=== PATIENT | male | born 1950 | race African-American/Black ===

== ENCOUNTER 2018-11-03 14:21 | Emergency (ER) | payer BC, MEDICARE ==
[2018-11-03 16:01] LABS: #Eosinphils 0.4 thou/uL (0.0-0.7); #Lymphocytes 1.7 thou/uL (1.20-3.40); #Monocytes 0.8 thou/uL (0.11-0.59); #Neutrophils 3.8 thou/uL (1.40-6.50); %Basophils 0.7 % (0.0-1.0); %Eosinophils 6.4 % (0.0-10.0); %Lymphocytes 24.9 % (21.0-51.0); %Monocytes 11.7 % (0.0-10.0); %Neutrophils 56.3 % (42.0-75.0); Hemoglobin 16.2 g/dL (14.0-18.0); Mean Corpuscular HGB CONC 33.9 g/dL (32.0-36.0); Mean Corpuscular Hemoglobin 31.1 pg (27.0-31.0); Mean Corpuscular Volume 91.9 fL (78.0-98.0); Mean Platelet Volume 7.7 fL (7.4-10.4); Platelet Count 280 thou/uL (130-400); RBC Distribution Width 12.8 % (11.5-14.5); White Blood Cell (WBC) Count 6.7 thou/uL (4.8-10.8)
[2018-11-03 16:19] LABS: ALT (SGPT) 36 U/L (8-55); AST (SGOT) 23 U/L (5-34); Albumin 4.2 g/dL (3.4-4.8); Alkaline Phosphatase 115 U/L (40-150); Anion Gap 14 mmol/L (10-20); BUN (Urea Nitrogen) 13 mg/dL (8.4-25.7); Bilirubin, Total 0.6 mg/dL (0.2-1.2); Calc. Creatinine Clearance 0 mL/min (70-130); Calcium 9.4 mg/dL (7.8-10.44); Carbon Dioxide 26 mmol/L (23-31); Chloride 102 mmol/L (98-107); Estimated GFR-MDRD 81; Globulin 2.8 g/dL (2.4-3.5); Glucose 84 mg/dL (80-115); Potassium 3.7 mmol/L (3.5-5.1); Sodium 138 mmol/L (136-145)
[2018-11-03] MEDS ORDERED: Dexamethasone 4 mg/ml Vial ONE (18:40)
[2018-11-03] MEDS ORDERED: Ketorolac Tromethamine 30 MG/ML VIAL ONE (18:40)
[2018-11-03] MEDS ORDERED: cloNIDine 0.1 MG TAB ONE (18:40)
--- NOTE | 2018-11-05 08:58 | EKG ---
Test Reason : Blood Pressure : / mmHG Vent. Rate : 068 BPM Atrial Rate : 068 BPM P-R Int : 170 ms QRS Dur : 102 ms QT Int : 430 ms P-R-T Axes : 061 -04 133 degrees QTc Int : 457 ms Normal sinus rhythm Possible Left atrial enlargement Left ventricular hypertrophy T wave abnormality, consider lateral ischemia Abnormal ECG No ST elevation/MD Confirmed by OLIVER FAIR M.D. ([id number]), social media editor FLORES FRITZ ([id number]) on 11/05/2018 8:58:42 AM Referred By: Confirmed By:OLIVER FAIR M.D.
== END 2018-11-03 19:40 | disposition home or self-care (01) ==
LOC: ERS 14:21
DX: M54.5 Low back pain (principal); I10 Essential (primary) hypertension
CPT/HCPCS: 36415; 80053; 82553; 84484; 85025; 93005; 96372; J1100; J1885

== ENCOUNTER 2018-12-20 10:49 | Emergency (ER) | payer BC, MEDICARE ==
--- NOTE | 2018-12-20 11:26 | RAD ---
XR Knee Lt 4 View STANDARD History: Knee pain Comparison: None. Findings: No acute fracture or malalignment. Please be central osteophyte of the lateral margin media l femoral condyle. Mild asymmetric changes of the quadriceps and patellar tendons. Small lateral compartment and medial compartment and patellofemoral compartment periarticular osteophytes. Impression: [id number] degenerative changes. No acute osseous abnormality.
--- NOTE | 2018-12-20 13:11 | RAD ---
EXAM: Portable chest PROVIDED CLINICAL HISTORY: Palpitations COMPARISON: 04/05/2012 FINDINGS: Cardiac and mediastinal silhouette is within normal limits. No focal consolidation, pleural fluid or pneumothorax evident. IMPRESSION: No evidence for an acute cardiopulmonary process.
[2018-12-20 13:17] LABS: #Eosinphils 0.2 thou/uL (0.0-0.7); #Lymphocytes 1.1 thou/uL (1.20-3.40); #Monocytes 0.9 thou/uL (0.11-0.59); #Neutrophils 7.4 thou/uL (1.40-6.50); %Basophils 0.1 % (0.0-1.0); %Eosinophils 1.8 % (0.0-10.0); %Lymphocytes 11.7 % (21.0-51.0); %Monocytes 9.8 % (0.0-10.0); %Neutrophils 76.6 % (42.0-75.0); Hemoglobin 16.9 g/dL (14.0-18.0); Mean Corpuscular HGB CONC 34.4 g/dL (32.0-36.0); Mean Platelet Volume 7.1 fL (7.4-10.4); Platelet Count 325 thou/uL (130-400); RBC Distribution Width 12.1 % (11.5-14.5); Red Blood Cell (RBC) Count 5.45 mill/uL (4.70-6.10); White Blood Cell (WBC) Count 9.6 thou/uL (4.8-10.8)
[2018-12-20 13:42] LABS: ALT (SGPT) 30 U/L (8-55); AST (SGOT) 18 U/L (5-34); Albumin 4.8 g/dL (3.4-4.8); Alkaline Phosphatase 129 U/L (40-150); Anion Gap 17 mmol/L (10-20); BUN (Urea Nitrogen) 14 mg/dL (8.4-25.7); Bilirubin, Total 0.5 mg/dL (0.2-1.2); CK (CPK) 168 U/L (30-200); Calc. Creatinine Clearance 0 mL/min (70-130); Calcium 10.7 mg/dL (7.8-10.44); Carbon Dioxide 21 mmol/L (23-31); Chloride 104 mmol/L (98-107); Estimated GFR-MDRD 78; Globulin 2.7 g/dL (2.4-3.5); Glucose 101 mg/dL (80-115); Lipase 34 U/L (8-78); Potassium 4.3 mmol/L (3.5-5.1); Protein, Total 7.5 g/dL (5.8-8.1); Sodium 138 mmol/L (136-145)
[2018-12-20 14:19] LABS: Bilirubin Negative (Negative); Blood, Urine Negative (Negative); Clarity Clear (Clear); Glucose, Urine (Dipstick) Normal (Negative); Leukocyte Negative Leu/uL (Negative); Nitrite Negative (Negative); Protein, Urine (Dipstick) 20 mg/dL (Neg-Trace); Urobilinogen Normal mg/dL (Less than 2)
== END 2018-12-20 14:23 | disposition home or self-care (01) ==
LOC: ERS 10:49
DX: R00.2 Palpitations (principal); M25.562 Pain in left knee; E11.9 Type 2 diabetes mellitus without complications; Z95.5 Presence of coronary angioplasty implant and graft; I10 Essential (primary) hypertension; Z85.46 Personal history of malignant neoplasm of prostate; Z79.899 Other long term (current) drug therapy; Z79.84 Long term (current) use of oral hypoglycemic drugs
CPT/HCPCS: 36415; 71045; 80053; 81003; 82550; 83690; 84484; 85025; 93005

== ENCOUNTER 2019-04-04 16:15 | Emergency (ER) | payer BC, MEDICARE ==
[2019-04-04] MEDS ORDERED: Ketorolac Tromethamine 30 MG/ML VIAL ONE (17:34)
== END 2019-04-04 17:50 | disposition home or self-care (01) ==
LOC: ERS 16:15
DX: M54.42 Lumbago with sciatica, left side (principal); M25.552 Pain in left hip; E11.9 Type 2 diabetes mellitus without complications; I20.9 Angina pectoris, unspecified
CPT/HCPCS: 96372; 99283; J1885

== ENCOUNTER 2019-04-06 07:49 | Outpatient (CLI) | payer BC, MEDICARE ==
--- NOTE | 2019-04-06 08:29 | RAD ---
EXAM: 2 views of the left hip HISTORY: Left hip pain COMPARISON: None FINDINGS: 2 views of the left hip shows no evidence of acute fracture or dislocation. No degenerative changes are seen. No soft tissue swelling is present. IMPRESSION: No evidence of acute osseous abnormality.
--- NOTE | 2019-04-06 08:30 | RAD ---
EXAM: Single view of the chest HISTORY: Abnormal finding in the lung field COMPARISON: 12/20/2018 FINDINGS: Single view of the chest shows a normal sized cardiomediastinal silhouette. There is no abby dence of consolidation, mass, or pleural effusion. Degenerative changes are seen in the spine. IMPRESSION: No evidence of acute cardiopulmonary disease
--- NOTE | 2019-04-06 08:30 | RAD ---
Exam: Single view of the pelvis HISTORY: Pelvic and hip pain COMPARISON: None FINDINGS: A single view the pelvis shows no evidence of acute fracture or dislocation. No degenerativ e changes seen in either hip. IMPRESSION: No evidence of acute osseous abnormality.
--- NOTE | 2019-04-06 08:32 | BD ---
EXAM: DEXA bone density examination HISTORY: 68-year-old male with osteopenia COMPARISON: None FINDINGS: L1--bone mineral density 0.960 g/sq cm; T score -1.0 L2--bone mineral density 1.023 g/sq cm; T score -0.6 L3--bone mineral density 1.063 g/sq cm; T score -0.4 L4--bone mineral density 1.098 g/sq cm; T score 0.1 Total L1-L4--bone mineral density 1.040 g/sq cm; T score -0.5 Left femoral neck--bone mineral density0.847; T score -0.6 Total proximal left femur--bone mineral density 1.135; T score 0.7 IMPRESSION: Normal bone mineral density.
--- NOTE | 2019-04-06 09:31 | RAD ---
TWO VIEWS OF THE LUMBAR SPINE: INDICATION: History of spinal stenosis. COMPARISON: Prior exam 11/05/2004. FINDINGS: There has been interval progression of mild degenerative disk disease involving L4-5 and L5-S1. Mild facet osteoarthrosis is seen at L4-5 and L5-S1. No acute fracture or subluxation is evident. Spina l alignment is preserved. IMPRESSION: Mild spondylosis of the lumbar spine. POS: TPC
== END 2019-04-06 07:50 | disposition home or self-care (01) ==
LOC: BICMAMMO 07:49
PROVIDERS: ATTEND Family Medicine
DX: Z13.820 Encounter for screening for osteoporosis (principal); M25.552 Pain in left hip; R91.8 Other nonspecific abnormal finding of lung field; R10.2 Pelvic and perineal pain; M48.061 Spinal stenosis, lumbar region without neurogenic claudication; M47.816 Spondylosis without myelopathy or radiculopathy, lumbar region
CPT/HCPCS: 71045; 72100; 72170; 77080

== ENCOUNTER 2019-04-06 08:29 | Emergency (ER) | payer BC, MEDICARE | END 2019-04-06 09:06 | disposition home or self-care (01) | LOC: ERS 08:29 | DX: M54.32 Sciatica, left side (principal); E11.9 Type 2 diabetes mellitus without complications; I10 Essential (primary) hypertension | CPT/HCPCS: 99283 ==

== ENCOUNTER 2019-04-13 16:22 | Emergency (ER) | payer BC, MEDICARE ==
[2019-04-13 18:33] LABS: #Basophils 0.1 thou/uL (0.0-0.2); #Eosinphils 0.3 thou/uL (0.0-0.7); #Lymphocytes 1.7 thou/uL (1.20-3.40); #Monocytes 0.8 thou/uL (0.11-0.59); #Neutrophils 5.5 thou/uL (1.40-6.50); %Eosinophils 4.1 % (0.0-10.0); %Lymphocytes 20.3 % (21.0-51.0); %Monocytes 9.8 % (0.0-10.0); %Neutrophils 64.8 % (42.0-75.0); Hemoglobin 14.1 g/dL (14.0-18.0); Mean Corpuscular HGB CONC 33.7 g/dL (32.0-36.0); Mean Corpuscular Hemoglobin 31.1 pg (27.0-31.0); Mean Corpuscular Volume 92.2 fL (78.0-98.0); Mean Platelet Volume 6.8 fL (7.4-10.4); Platelet Count 305 thou/uL (130-400); RBC Distribution Width 12.5 % (11.5-14.5); Red Blood Cell (RBC) Count 4.53 mill/uL (4.70-6.10); White Blood Cell (WBC) Count 8.5 thou/uL (4.8-10.8)
[2019-04-13] MEDS ORDERED: HYDROcodone/Acetaminophen 10/325 mg Tablet ONE (18:35)
[2019-04-13] MEDS ORDERED: Ibuprofen 200 MG TAB ONE (18:35)
[2019-04-13] MEDS ORDERED: Diazepam 5 MG TAB ONE (18:35)
[2019-04-13 18:56] LABS: ALT (SGPT) 32 U/L (8-55); AST (SGOT) 15 U/L (5-34); Albumin 4.3 g/dL (3.4-4.8); Alkaline Phosphatase 92 U/L (40-110); Anion Gap 10 mmol/L (10-20); BUN (Urea Nitrogen) 21 mg/dL (8.4-25.7); Bilirubin, Total 0.6 mg/dL (0.2-1.2); Calc. Creatinine Clearance 0 mL/min (70-130); Calcium 9.4 mg/dL (7.8-10.44); Carbon Dioxide 32 mmol/L (23-31); Chloride 102 mmol/L (98-107); Estimated GFR-MDRD 78; Globulin 2.4 g/dL (2.4-3.5); Glucose 113 mg/dL (80-115); Potassium 3.9 mmol/L (3.5-5.1); Protein, Total 6.7 g/dL (5.8-8.1); Sodium 140 mmol/L (136-145)
== END 2019-04-13 19:32 | disposition home or self-care (01) ==
LOC: ERS 16:22
DX: R07.9 Chest pain, unspecified (principal); G89.29 Other chronic pain; M79.605 Pain in left leg; E11.9 Type 2 diabetes mellitus without complications; I10 Essential (primary) hypertension; Z79.899 Other long term (current) drug therapy; Z79.84 Long term (current) use of oral hypoglycemic drugs
CPT/HCPCS: 36415; 80053; 84484; 85025; 93005

== ENCOUNTER 2019-05-26 06:05 | Emergency (ER) | payer BC, MEDICARE ==
[2019-05-26] MEDS ORDERED: Ketorolac Tromethamine 60 MG/2 ML VIAL ONE (06:52)
== END 2019-05-26 07:08 | disposition home or self-care (01) ==
LOC: ERS 06:05
DX: B34.9 Viral infection, unspecified (principal); E11.9 Type 2 diabetes mellitus without complications; I10 Essential (primary) hypertension; Z79.84 Long term (current) use of oral hypoglycemic drugs; Z95.5 Presence of coronary angioplasty implant and graft
CPT/HCPCS: 87804; 96372; 99283; J1885

== ENCOUNTER 2019-06-06 08:38 | Outpatient (CLI) | payer MEDICARE, BC ==
--- NOTE | 2019-06-06 11:00 | MRI ---
MRI OF THE LUMBAR SPINE WITHOUT CONTRAST: DATE: 06/06/2019. COMPARISON: None. HISTORY: Lumbar radiculopathy, low back pain with numbness and tingling down the left leg. TECHNIQUE: Multiplanar, multisequence MR imaging of the lumbar spine obtained without contrast. FINDINGS: The sagittal STIR imaging demonstrates no focal area of osseous marrow edema. On the basis of 5 lumb ar-type vertebral bodies, the conus medullaris terminates at the T12-L1 level. T12-L1: Mild bilateral facet hypertrophy. Intervertebral disk height and signal intensity within no rmal limits with no significant central canal or neural foraminal stenosis. L1-2: Intervertebral disk height and signal intensity within normal limits with no significant centr al canal or neural foraminal stenosis. L2-3: Intervertebral disk height and signal intensity within normal limits. No significant central canal or neural foraminal stenosis. Mild left-sided facet hypertrophy. L3-4: Intervertebral disk height and signal intensity within normal limits with no significant centr al canal or neural foraminal stenosis. L4-5: Mild bilateral facet hypertrophy. Intervertebral disk height and signal intensity within norm al limits. There is mild neural foraminal stenosis on the left. No central canal or right neural fo raminal stenosis. L5-S1: There is disk desiccation and mild disk bulge. There is an annular tear in the left paracent ral region with a small associated left paracentral disk protrusion which abuts the ventral aspect of the S1 nerve root on the left with a mild degree of left lateral recess stenosis. No significant ne ural foraminal stenosis on either side. The imaged retroperitoneal structures demonstrate a suggestion of a possible outpouching/sacular aneu rysm of the distal abdominal aorta posteriorly. CT angiogram of the abdomen and pelvis is advised fo r full assessment. IMPRESSION: 1. Annular tear and associated disk protrusion in the left paracentral region at L5-S1 with associat ed left lateral recess stenosis and slight mass effect on the S1 nerve root on the left. 2. 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 CT angiogram is advised. CODE T POS: OFF
== END 2019-06-06 08:39 | disposition home or self-care (01) ==
LOC: BICMRI 08:38
PROVIDERS: ATTEND Nurse Practitioner Family
DX: M51.16 Intervertebral disc disorders with radiculopathy, lumbar region (principal); M51.27 Other intervertebral disc displacement, lumbosacral region; S31.010A Laceration without foreign body of lower back and pelvis without penetration into retroperitoneum, initial encounter; M48.08 Spinal stenosis, sacral and sacrococcygeal region; M53.3 Sacrococcygeal disorders, not elsewhere classified
CPT/HCPCS: 72148

== ENCOUNTER 2019-07-05 13:25 | Outpatient (CLI) | payer BC, MEDICARE ==
[2019-07-05] MEDS ORDERED: Iopamidol-370 76% 500 ML 1 ML ONE (13:49)
--- NOTE | 2019-07-05 14:28 | CT ---
CTA ABDOMEN AND PELVIS WITH AND WITHOUT IV CONTRAST: INDICATIONS: Abdominal aortic aneurysm TECHNIQUE: Multiple CTA images were obtained of the abdomen and pelvis utilizing IV contrast and 3D reformatted imaging. Noncontrast CT images were obtained of the abdomen and pelvis. Axial, coronal and sagittal reformatted images were constructed from the raw data. COMPARISON: Prior CT abdomen and pelvis with contrast dated January 13, 2016. FINDINGS: ABDOMEN: Lung bases: Clear Liver: Stable small hemangiomas within the left hepatic lobe and right hepatic lobe. There is scatter ed calcified granuloma within the liver. Gallbladder: Normal appearing. Pancreas: Normal. Adrenal glands: Normal. Spleen: Calcified granuloma within the spleen Kidneys and ureters: Normal. No hydronephrosis. Lymph nodes:No lymphadenopathy. Free fluid in abdomen:No free fluid is evident. PELVIS: Small and large bowel: There are scattered colonic diverticulosis without evidence of active divertic ulitis. The small bowel is of normal caliber. Appendix:Not definitely seen Bladder: Normal. Rectal and perirectal soft tissues:Normal. Reproductive structures: Normal. Free fluid in pelvis: No free fluid is evident. Lymphadenopathy pelvis: No lymphadenopathy is evident. Osseous structures: No acute osseous abnormality. No destructive osteolytic or osteoblastic lesion i s identified. There is scattered degenerative and osteoarthritic changes. Soft tissues:There is a fat-containing umbilical hernia. VASCULATURE: Aorta: There are moderate atherosclerotic irregularity involving the abdominal aorta. There is a smal l thrombosed fusiform outpouching involving the posterior aspect of the infrarenal abdominal aorta on image 247 of series 4 measuring 1 cm. This is suspicious for small thrombosed fusiform aneurysm. Celiac:Normal in caliber without evidence of stenosis or occlusion. SMA:There is mild narrowing involving the proximal SMA Renal arteries:Normal in caliber without evidence of stenosis or occlusion. VINITA:There is moderate narrowing involving the origin of the VINITA. Right common iliac artery: There is moderate atherosclerotic irregularity involving the right common iliac artery with approximately 50% luminal caliber narrowing. Right external iliac artery: There is severe narrowing involving the right external iliac artery, bes t seen on image 329 of series 4 and image 80 of series 6 Right internal iliac artery: There is severe narrowing involving the origin and proximal aspect of th e right internal iliac artery. Left common iliac artery: There is a stable chronic focal dissection involving the proximal left comm on iliac artery. There is a eccentric atherosclerotic plaque involving the mid left common iliac artery inducing mild to moderate luminal caliber narrowing. Left external iliac artery: There is a moderate 50% luminal caliber narrowing involving the distal le ft external iliac artery.. Left internal iliac artery: Completely occluded Right common femoral artery: Normal in caliber without evidence of stenosis or occlusion. Right deep femoral artery: Normal in caliber without evidence of stenosis or occlusion. Right superficial femoral artery: There is moderate narrowing involving the origin and proximal aspe ct of the right SFA. Left common femoral artery: Normal in caliber without evidence of stenosis or occlusion. Left deep femoral artery: Normal in caliber without evidence of stenosis or occlusion. Left superficial femoral artery: There is moderate narrowing involving the proximal aspect the left superficial femoral artery. Additional findings: None. IMPRESSION: 1. Small thrombosed posterior fusiform outpouching involving the lower infrarenal abdominal aorta, ju st proximal to the aortic bifurcation. 2. High-grade stenosis involving the right external iliac artery and origin and proximal aspect of th e right internal iliac artery. 3. 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 4. 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 Mild to moderate luminal caliber narrowing involving the mid left common iliac artery 5. Mild narrowing involving the proximal SMA 6. Moderate narrowing involving the origin of the VINITA.
== END 2019-07-05 13:26 | disposition home or self-care (01) ==
LOC: BICCT 13:25
PROVIDERS: ATTEND Thoracic Surgery (Cardiothoracic Vascular Surgery)
DX: I71.4 Abdominal aortic aneurysm, without rupture (principal)
CPT/HCPCS: 74174; 82565; Q9967

== ENCOUNTER 2019-10-23 14:15 | Inpatient (IN) | payer BC, MEDICARE ==
[2019-10-23 14:39] LABS: #Basophils 0.1 thou/uL (0.0-0.2); #Eosinphils 0.2 thou/uL (0.0-0.7); #Lymphocytes 1.9 thou/uL (1.20-3.40); #Monocytes 0.8 thou/uL (0.11-0.59); #Neutrophils 4.1 thou/uL (1.40-6.50); %Eosinophils 2.5 % (0.0-10.0); %Lymphocytes 26.9 % (21.0-51.0); %Monocytes 11.6 % (0.0-10.0); %Neutrophils 56.9 % (42.0-75.0); Hemoglobin 15.8 g/dL (14.0-18.0); Mean Corpuscular HGB CONC 34.2 g/dL (32.0-36.0); Mean Corpuscular Hemoglobin 31.5 pg (27.0-31.0); Mean Corpuscular Volume 92.2 fL (78.0-98.0); Platelet Count 319 thou/uL (130-400); RBC Distribution Width 12.3 % (11.5-14.5); White Blood Cell (WBC) Count 7.1 thou/uL (4.8-10.8)
--- NOTE | 2019-10-23 14:55 | RAD ---
Exam: Chest one view HISTORY:Dizziness x3 days. Chest pain and shortness of breath. Comparison: 05/28/2011 FINDINGS: Cardiac silhouette: Normal Aorta: Unremarkable Pulmonary vessels: Normal Costophrenic angles: Clear LUNGS: No masses or consolidation. Pneumothorax: None Osseous abnormalities: None IMPRESSION: No acute cardiopulmonary process.
[2019-10-23 14:58] LABS: ALT (SGPT) 27 U/L (8-55); AST (SGOT) 20 U/L (5-34); Albumin 4.3 g/dL (3.4-4.8); Alkaline Phosphatase 83 U/L (40-110); Anion Gap 17 mmol/L (10-20); BUN (Urea Nitrogen) 14 mg/dL (8.4-25.7); Bilirubin, Total 0.6 mg/dL (0.2-1.2); CK (CPK) 356 U/L (30-200); Calc. Creatinine Clearance 0 mL/min (70-130); Calcium 9.3 mg/dL (7.8-10.44); Carbon Dioxide 21 mmol/L (23-31); Chloride 102 mmol/L (98-107); Estimated GFR-MDRD 61; Globulin 3.1 g/dL (2.4-3.5); Glucose 130 mg/dL (80-115); Potassium 3.7 mmol/L (3.5-5.1); Protein, Total 7.4 g/dL (5.8-8.1); Sodium 136 mmol/L (136-145)
[2019-10-23 19:02] LABS: Troponin I Less than 0.010 ng/mL (< 0.028)
[2019-10-23] MEDS ORDERED: Dextrose 50% Abboject 50 ML SYRINGE SLOW IVP PRN (20:58)
[2019-10-23] MEDS ORDERED: HumaLOG 300 UNITS/3 ML VIAL SC PRN ×2 (20:58)
[2019-10-23] MEDS ORDERED: Dextrose 5% in Water 1,000 ML IV PRN (20:58)
[2019-10-23] MEDS ORDERED: Ondansetron ODT 4 MG TAB PO PRN (21:00)
[2019-10-23] MEDS ORDERED: Acetaminophen 325 MG TAB PO PRN (21:00)
[2019-10-23 21:46] LABS: Troponin I 0.029 ng/mL (< 0.028)
[2019-10-23] MEDS ORDERED: Aspirin 81 mg Enteric Coated Tablet PO SCH (22:00)
[2019-10-23] MEDS: Famotidine 20 MG TAB PO SCH (22:02)
--- NOTE | 2019-10-23 22:06 | HP ---
PRIMARY CARE PHYSICIAN: Chandler Hand MD CHIEF COMPLAINT: Dizziness x3 days. HISTORY OF PRESENT ILLNESS: The patient is a 68-year-old male with a past medical history significant for CAD with a stent placed in 2012, hypertension, borderline diabetes, and prostate cancer, who presents to the ER for the above complaint. The patient reports on Thursday evening, he developed sudden onset of lightheadedness. He states that "I felt like I was going to pass out" with some associated diaphoresis, nausea, and chest discomfort. His symptoms developed while he was vacuuming and mopping in a really warm building he claims. He reports that he was sweaty, but his back became extremely saturated when the lightheadedness occurred. He sat down for approximately 1 hour and his symptoms resolved. However, when he went to standup again, he developed lightheadedness and he has been having those symptoms off and on for the past 4 days. He denies any recent trauma or falls. He denies any recent fever or chills. He denies any headache. He denies any shortness of breath or heart palpitations. He denies any abdominal pain or blood in his stools. He reports that his oral intake has had plenty of water and food. His blood sugars have been well controlled. He denies any changes in any of his medications and has no other complaints at this time. In the ER, the patient presented hypertensive with a blood pressure of 194/83, normal pulse, normal respirations, normal oxygen saturations, and no pain. EKG was sinus rhythm, 69 , no ST elevations. Initial troponin was 0.023, CK of 356. Chest x-ray was negative for any acute process. His creatinine was bumped at 1.41. CBC were unremarkable. The nurse tested orthostatics in the ER and his vital signs were negative for orthostatic hypotension. However, the patient reported becoming slightly lightheaded with standing. The patient was given 1 L of normal saline and will be admitted to the floor. PAST MEDICAL HISTORY: 1. CAD with a stent in 2012. 2. Borderline diabetes, on metformin. 3. Hypertension. 4. Prostate cancer. PAST SURGICAL HISTORY: 1. Appendectomy. 2. Prostatectomy. SOCIAL HISTORY: The patient lives in [place] with his spouse. 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 He denies any past smoking, illicit drug use, or alcohol intake. FAMILY HISTORY: Noncontributory for cardiac. Noncontributory for hypertension. Noncontributory for diabetes. Noncontributory for stroke. ALLERGIES: NO KNOWN ALLERGIES. HOME MEDICATIONS: 1. Metformin 500 mg p.o. b.i.d. 2. Aspirin 81 mg p.o. daily. 3. Tribenzor 20 mg/5 mg/12.5 mg one tablet p.o. daily. REVIEW OF SYSTEMS: All review of systems are negative unless otherwise noted in the HPI. PHYSICAL EXAMINATION: VITAL SIGNS: Temperature 98.3, blood pressure 194/83, heart rate 68, respirations 16, oxygen saturation 100% on room air. Pain scale 0/10. CONSTITUTIONAL: The patient is alert and oriented to person, place, and time. He is nontoxic, appears comfortable, in no acute distress. HEAD: Atraumatic, normocephalic. EYES: PERRLA. Extraocular muscles intact. ENT: Nares patent bilaterally. Oropharynx clear. Uvula midline. Moist mucous membranes. NECK: Trachea midline. Neck is supple. No JVD. No cervical lymphadenopathy. No carotid bruits auscultated. RESPIRATORY/CHEST: Respirations even and nonlabored. Clear to auscultation. CARDIOVASCULAR: S1 and S2. No murmurs, rubs, or gallops. ABDOMEN: Soft, nontender, nondistended. Active bowel sounds. No guarding. No rigidity. No rebound tenderness. EXTREMITIES: Upper extremities, full range of motion. Strength normal. Palpable radial pulses. Bilateral lower extremity, full range of motion. Normal strength. Normal sensation. Palpable pedal pulses. No swelling. BACK: Full range of motion. No central spinous tenderness. No CVA tenderness. NEUROLOGIC: Cranial nerves 2 through 12 are intact. No focal deficits. The patient is oriented to person, place, and time. PSYCHIATRIC: Normal affect. No suicidal or homicidal ideations. LABORATORY DATA: EKG normal sinus rhythm. Chest x-ray was negative for any acute process. Troponin 0.023, CK 356. Sodium 136, potassium 3.7, chloride 102, carbon dioxide 21, BUN 14, creatinine 1.41, glucose 130, T bilirubin 0.6, AST 20, ALT 27, alkaline phosphatase 83. CK 356. WBCs 7.1, hemoglobin 15.8, hematocrit 46.1, platelets 319. IMPRESSION AND PLAN: 1. Chest pain, suspected cardiogenic near syncope. We will admit the patient to the telemetry for observation status. Expected length of stay less than 2 midnights. The patient has a HEART score of 5 with a normal EKG, negative troponins, negative chest x-ray. We will give the patient 243 aspirin. The patient has already had an 81 mg aspirin today. We will consult Cardiology. We will order an echocardiogram. We will trend troponins. Check a BNP, fasting lipid, TSH, and mag level. We will order a carotid Doppler ultrasound and check orthostatics in the a.m. 2. Acute kidney injury. The patient presents with a creatinine level of 1.41, baseline appears to be 1 or less. The patient received 1 L normal saline in the ER. He is tolerating p.o. intake, but will be n.p.o. after midnight. We will start IV fluid gentle hydration at midnight and recheck level in the a.m. 3. Borderline diabetes. The patient presents with a glucose of 130 and is on metformin daily. We will hold metformin and will start mild sliding scale and check Accu-Cheks a.c. and at bedtime. 4. Hypertension. The patient reports taking Tribenzor. We will hold the patient's home medication for now related to acute kidney injury. We will monitor blood pressure and will administer p.r.n. as needed. 5. Coronary artery disease. The patient had a stent put in 2012, reported 90% blockage to that artery. The patient is on daily aspirin. We will continue his aspirin. 6. SCDs for deep venous thrombosis prophylaxis. Pepcid for gastrointestinal prophylaxis. Consult walking program. The patient is a full code. The MPOA is Linda Galvan, his spouse at [phone]. 7. Discussed case with Dr. Hoff. Job ID: [id number] [facility]
[2019-10-23] MEDS: Sodium Chloride 0.9% 1,000 ML IV SCH (23:12)
--- NOTE | 2019-10-24 00:24 | ULT ---
ULTRASOUND DOPPLER DUPLEX CAROTID: 10/23/2019 10:32 PM HISTORY: Near syncope in 68-year-old male. Dr. Cr reported the left vertebral artery occlusion by telephone to nurse Marie Walker at 12:20 PM 10/24/2019 TECHNIQUE: Grayscale, color-flow, and spectral analysis, of major arteries of neck. FINDINGS: Mild atherosclerotic calcified and noncalcified plaque at distal common carotid arteries, and origins of bilateral internal carotid arteries. Highest peak systolic velocities in internal carotid arteries: Right: 75 cm/s Left: 60 cm/s. ICA/CCA ratios: Right: 1.0 Left: 0.7 Left vertebral artery flow not visualized, despite the fact that the left vertebral artery is well vi sualized, with generous caliber of 4 mm.. Right vertebral artery flow antegrade. IMPRESSION: 1. Evidence for left vertebral artery occlusion. 2. Mild atherosclerosis of carotid arteries without hemodynamically significant stenosis.
--- NOTE | 2019-10-24 00:36 | PDOC.EVN ---
Event Note - Event Note Event Note: CD US shows Left vertebral artery occlusion. Patient stable, no focal deficits. Has GOLDEN. Consider CTA vs CVS consult in morning.
[2019-10-24 04:29] LABS: #Basophils 0.1 thou/uL (0.0-0.2); #Eosinphils 0.2 thou/uL (0.0-0.7); #Lymphocytes 1.3 thou/uL (1.20-3.40); #Monocytes 0.6 thou/uL (0.11-0.59); #Neutrophils 2.9 thou/uL (1.40-6.50); %Eosinophils 4.2 % (0.0-10.0); %Monocytes 12.3 % (0.0-10.0); %Neutrophils 56.5 % (42.0-75.0); Hemoglobin 14.2 g/dL (14.0-18.0); Mean Corpuscular HGB CONC 33.1 g/dL (32.0-36.0); Mean Corpuscular Hemoglobin 30.7 pg (27.0-31.0); Mean Corpuscular Volume 92.9 fL (78.0-98.0); Mean Platelet Volume 6.9 fL (7.4-10.4); Platelet Count 275 thou/uL (130-400); RBC Distribution Width 12.3 % (11.5-14.5)
[2019-10-24 04:40] LABS: Anion Gap 12 mmol/L (10-20); BUN (Urea Nitrogen) 10 mg/dL (8.4-25.7); Calc. Creatinine Clearance 108 mL/min (70-130); Calcium 8.4 mg/dL (7.8-10.44); Carbon Dioxide 24 mmol/L (23-31); Cardiac Risk 6.9 (Less than 4.5); Chloride 105 mmol/L (98-107); Cholesterol 228 mg/dl (< 200 Desired); Estimated GFR-MDRD 84; Glucose 98 mg/dL (80-115); HDL Cholesterol 33 mg/dL (>60 Neg Risk); Potassium 3.9 mmol/L (3.5-5.1); Sodium 137 mmol/L (136-145)
[2019-10-24 04:45] LABS: LDL Cholesterol, Calculated 154 mg/dL
[2019-10-24 05:09] LABS: Triglycerides 198 mg/dL (Less than 150)
--- NOTE | 2019-10-24 08:34 | PDOC.HOSPP ---
- Subjective Encounter Date: 10/24/19 Encounter Time: 10:40 Subjective: Patient with dizziness on and off with ambulation, much better than on admit. No more chest pain over night. Dizziness preceded the chest pain by a few days per patient. - Objective Vital Signs & Weight: Vital Signs (12 hours) Temp Pulse Resp BP BP BP BP 10/24/19 07:14 97.6 F 58 L 16 120/64 10/24/19 04:00 97.7 F 52 L 20 10/23/19 22:40 124/57 L 124/67 10/23/19 21:18 97.9 F 55 L 18 146/70 H BP Pulse Ox 10/24/19 07:14 98 10/24/19 04:00 119/55 L 97 10/23/19 22:40 125/62 10/23/19 21:18 98 Weight Weight 249 lb 8 oz I&O: 10/23/19 10/24/19 10/25/19 06:59 06:59 06:59 Intake Total 840 Output Total 925 Balance -85 Result Diagrams: 10/24/19 03:58 10/24/19 03:58 Additional Labs: Accuchecks 10/24/19 05:54 POC Glucose 93 Hospitalist ROS - Review of Systems Constitutional: denies: fever, chills Respiratory: denies: cough, shortness of breath Cardiovascular: denies: chest pain, palpitations Gastrointestinal: denies: nausea, vomiting, abdominal pain - Medication Medications: Active Medications Generic Name Dose Route Start Last Admin Trade Name Freq PRN Reason Stop Dose Admin Famotidine 20 mg 10/23/19 21:00 10/23/19 22:02 Pepcid PO 20 mg BID CHASIDY Administration Sodium Chloride 1,000 mls @ 50 mls/hr 10/23/19 23:59 10/23/19 23:12 Normal Saline 0.9% IV 1,000 mls .Q20H CHASIDY Administration Sodium Chloride 10 ml 10/23/19 21:00 10/23/19 22:03 Flush - Normal Saline IVF 10 ml Q12HR CHASIDY Administration - Exam General Appearance: NAD, awake alert ENT: moist mucosa Heart: RRR, no murmur, no gallops, no rubs Respiratory: CTAB, no wheezes, no rales, no ronchi Gastrointestinal: soft, non-tender, non-distended, normal bowel sounds Neurological: cranial nerve grossly intact, no weakness, no focal deficits Psychiatric: normal affect, normal behavior, A&O x 3 Hosp A/P (1) Chest pain Code(s): R07.9 - CHEST PAIN, UNSPECIFIED Status: Acute (2) Dizziness Code(s): R42 - DIZZINESS AND GIDDINESS Status: Acute (3) Acute kidney injury Code(s): N17.9 - ACUTE KIDNEY FAILURE, UNSPECIFIED Status: Acute (4) CAD (coronary artery disease) Code(s): I25.10 - ATHSCL HEART DISEASE OF [place] CORONARY ARTERY W/O ANG PCTRS Status: Chronic (5) DM type 2 (diabetes mellitus, type 2) Status: Chronic (6) Hypertension Code(s): I10 - ESSENTIAL (PRIMARY) HYPERTENSION Status: Chronic Qualifiers: Hypertension type: essential hypertension Qualified Code(s): I10 - Essential (primary) hypertension (7) Obesity Code(s): E66.9 - OBESITY, UNSPECIFIED Status: Chronic - Plan Dizziness and occluded vertebral artery on ultrasound. Will check MRI brain to rule out basilar system stroke Cardiology consulted for chest pain. Will hold on contrast procedures until getting their recommendations.
[2019-10-24] MEDS: Famotidine 20 MG TAB PO SCH ×2 (09:12→20:43)
--- NOTE | 2019-10-24 12:37 | MRI ---
MRI BRAIN NONCONTRAST: DATE: 10/24/2019 HISTORY: 68-year-old male with dizziness and left vertebral artery occlusion FINDINGS: There is no obstructive hydrocephalus. There is no midline shift or any other evidence of mass effect . There is no extra-axial fluid collection. There are several scattered small foci of T2 hyperintensity in the periventricular white matter and rivero radiata. At least some of this represen ts Mild chronic ischemic white matter changes due to microvascular atherosclerosis. A few of these may represent tiny old white matter lacunar infarctions, especially 1 in the right periventricular wh ite matter abutting posterior body of right lateral ventricle. There is otherwise no major intra-axial signal abnormality, recent hemorrhage, or restricted diffusion. Absence of normal flow vo id at proximal intracranial portion of left vertebral artery. Normal flow void in the basilar artery. There is a tiny old lacunar infarction in the right side of the upper diane. No evidence of in farction of cerebellum. IMPRESSION: 1) mild chronic ischemic white matter changes, and perhaps a few deep cerebral white matter old lacun ar infarctions.. 2) evidence for occlusion of left vertebral artery. 3) no acute infarction. Normal cerebellum. 4) tiny old lacunar infarction at right anterior upper diane. 5) recommend CT angiogram of the neck and head.
--- NOTE | 2019-10-24 14:19 | EKG ---
Test Reason : Blood Pressure : / mmHG Vent. Rate : 050 BPM Atrial Rate : 050 BPM P-R Int : 186 ms QRS Dur : 114 ms QT Int : 438 ms P-R-T Axes : 070 024 043 degrees QTc Int : 399 ms Sinus bradycardia Otherwise normal ECG When compared with ECG of 23-OCT-2019 14:22, (Unconfirmed) No significant change was found Confirmed by DR. Yudi CAPPS ([id number]) on 10/24/2019 2:19:04 PM Referred By: HUY RAYMUNDO Confirmed By:DR. Yudi CAPPS
[2019-10-24] MEDS: Sodium Chloride 0.9% 1,000 ML IV SCH (17:07)
[2019-10-24] MEDS: Atorvastatin Calcium 40 MG TAB PO SCH (20:42)
[2019-10-24] MEDS: Nitroglycerin 0.4 MG TAB (25 Tab Bottle) PO PRN ×2 (20:42→21:16)
[2019-10-24] MEDS: Senokot S 8.6-50 MG TAB PO PRN (21:15)
--- NOTE | 2019-10-24 21:51 | CON ---
DATE OF CONSULTATION: HISTORY OF PRESENT ILLNESS: Toni Galvan is a 68-year-old black male with previous history of coronary artery disease. He states that in 2012, he was feeling very weak and dizzy. He was taken to [facility] and then transferred to the hospital, underwent cardiac catheterization and had a stent placed to a 90% blocked artery. He states that there were blockages in the other two arteries, but he is not certain how bad that was. He also was on simvastatin in the past; however, he states that his doctor took him off this, I guess his LDL now is 154. Over the last five days, he has had episodes while working in a hot environment, where become extremely lightheaded and dizzy, has some mild chest pressure associated with that. He had an episode on October 18, October 21, and October 22. These episodes last approximately 30 minutes. He become very lightheaded and dizzy, mildly diaphoretic and would have to lay down until this resolves as well as the chest pressure. He had mild shortness of breath with this also. PAST MEDICAL HISTORY: Hypertension, diabetes, hypercholesterolemia, and prostate cancer. PAST SURGICAL HISTORY: Appendectomy and prostatectomy. SOCIAL HISTORY: He does not smoke or drink. FAMILY HISTORY: Negative for coronary artery disease. MEDICATIONS: 1. Aspirin 81 daily. 2. Metformin 500 mg b.i.d. 3. Olmesartan/amlodipine/hydrochlorothiazide 20/5/12.5 q.a.m. ALLERGIES: NONE. REVIEW OF SYSTEMS: A 10-point review of systems is otherwise unremarkable. PHYSICAL EXAMINATION: VITAL SIGNS: Blood pressure 119/55 and pulse of 52. He has had heart rates into the 40s. HEENT: PERRL. NECK: Supple. CHEST: Clear. CARDIAC: S1 and S2 normal without any S3, S4, or murmurs. Carotid upstrokes normal without bruits. ABDOMEN: Normal bowel sounds without tenderness or organomegaly. EXTREMITIES: Revealed no clubbing, cyanosis, or edema. NEUROLOGIC: Grossly intact. LABORATORY DATA: EKG reveals sinus bradycardia with rate of 50 per minute, otherwise unremarkable. Echocardiogram revealed ejection fraction of 50% to 55% with evidence of diastolic dysfunction, mild left atrial enlargement, mild mitral regurgitation, and mild tricuspid regurgitation. Hemoglobin 14.2, hematocrit 42.8, white count 5000, and platelets 275,000. Sodium 137, potassium 3.9, chloride 105, carbon dioxide 24, BUN 10, and creatinine 1.06. It is of note that on admission his creatinine was 1.41. Troponin I up to 0.029. Cholesterol 228, triglycerides 198, HDL 33, and LDL 154. TSH is normal. IMPRESSION: 1. Coronary artery disease status post stent placement in 2012. With these episodes, he is having chest discomfort and certainly these episodes may be ischemically mediated causing bradycardia. 2. Episodes of bradycardia with heart rates into the 40s with lightheadedness and dizziness. 3. Hypertension. 4. Hypercholesterolemia on no medications. 5. Diabetes. PLAN: The patient will be started on a statin. He certainly may require pacemaker placement as he continues to be monitored to evaluate his heart rate. I feel he should undergo cardiac catheterization to reassess his coronary anatomy. Risks of this were discussed with the patient including , myocardial infarction, dye reaction, vascular injury, CVA, transfusion, limb loss, renal loss, etc. Also risk of intervention with PTCA and stent placement were discussed including , myocardial infarction, emergent CABG, restenosis, stent thrombosis, vessel perforation, etc. He has never had gastrointestinal bleeding or stroke and has no upcoming surgery. Therefore, drug-eluting stent will be placed if required. Job ID: [id number] MTDD
[2019-10-25] MEDS: Famotidine 20 MG TAB PO SCH ×2 (05:53→19:57)
[2019-10-25] MEDS ORDERED: Sodium Chloride 0.9% 1,000 ML IV SCH ×2 (06:00→08:10)
[2019-10-25] MEDS ORDERED: Heparin 10,000 UNITS/1 ML VIAL ONE (06:34)
[2019-10-25] MEDS ORDERED: Midazolam HCl 2 mg/2 ml Vial ONE (07:27)
[2019-10-25] MEDS ORDERED: Fentanyl 100 MCG/2 ML VIAL ONE (07:27)
[2019-10-25] MEDS ORDERED: Protamine Sulfate 50 MG/5 ML VIAL ONE (07:46)
[2019-10-25] MEDS ORDERED: Sodium Chloride 0.9% 200 ML IV PRN (08:07)
[2019-10-25] MEDS ORDERED: Nitroglycerin 0.4 MG TAB (25 Tab Bottle) SL PRN (08:07)
[2019-10-25] MEDS ORDERED: Acetaminophen/Codeine 30-300mg Tablet PO PRN ×2 (08:07)
[2019-10-25] MEDS ORDERED: Iopamidol 370 76% 100 ML VIAL ONE (08:47)
[2019-10-25] MEDS ORDERED: Iopamidol 370 76% 50 ML VIAL FS ONE (08:47)
[2019-10-25] MEDS ORDERED: Communication Order-Pharmacy FS SCH (09:41)
[2019-10-25 10:15] LABS: Hemoglobin A1c 5.8 % (4.0-6.0)
--- NOTE | 2019-10-25 10:29 | CON ---
DATE OF CONSULTATION: HISTORY OF PRESENT ILLNESS: This is a 68-year-old gentleman who was admitted following multiple episodes of near syncope and chest discomfort while working. His troponin was only the smallest bit elevated and other laboratory values of note include a cholesterol of 228. He underwent multiple evaluations including an echocardiogram which was normal by Dr. Reynolds's report, a brain MRI showing a tiny old lacunar infarct, and a carotid ultrasound showing mild disease. Cardiac catheterization today showed 3-vessel coronary artery disease with diffuse high-grade lesions in a diagonal branch, about a 70% LAD just after the diagonal, about an 80% stenosis in the circumflex prior to a previously stented OM, and a completely occluded right coronary artery, which is a chronic finding. PAST MEDICAL HISTORY: Includes: 1. Prostate cancer, treated by robotic prostatectomy by Dr. Pollard at [facility]. 2. He has a history of coronary artery disease with stenting in [address] [facility]. 3. He has dyslipidemia. 4. Hypertension. PAST SURGICAL HISTORY: Includes: 1. Robotic prostatectomy. 2. Appendectomy as a child. 3. Stent in his OM [place] [address] Mercer and Dr[address] Roque. FAMILY HISTORY: Parents are both . SOCIAL HISTORY: The patient is a nondrinker. He is , and his is a smoker. He does not drink. 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 He has 4 adult children. ALLERGIES: HE HAS NO KNOWN ALLERGIES. MEDICATIONS: Prior to admission, included: 1. Metformin 500 b.i.d. 2. Olmesartan/amlodipine/hydrochlorothiazide 40/10/12.5 a day. 3. Aspirin 81 a day. 4. He was on a statin in the past, but is not currently taking that at home. REVIEW OF SYSTEMS: The patient denies any difficulty urinating. He has had no symptoms to suggest a TIA or stroke. He does have chronic back pain, for which he has been evaluated in the past. Prior to the current episode, he had no prior episodes of chest pain or shortness of breath. He denies claudication, although does have a history of peripheral vascular disease with absent pedal pulses. PHYSICAL EXAMINATION: GENERAL: He is an alert and cooperative gentleman. VITAL SIGNS: Blood pressure most recently of 135/70, heart rate of 54, he is afebrile, he has a BMI of 38 with a weight of 250 pounds, height of 5 feet 8 inches. NECK: No carotid bruits. CARDIAC: Regular rate and rhythm. No murmurs. ABDOMEN: Obese and nontender. LUNGS: Clear to auscultation anteriorly. EXTREMITIES: He has no peripheral edema, but does have flat feet. I do not feel popliteal or pedal pulses, but arm pressure on the left was 120 with a left PT of 80 and monophasic. No DP or peroneal signal and the right PT biphasic in 110. He is a left arm dominant and his Jf's test is not clear to me due to difficulty seeing skin color in his palm. PLAN: Plan at this time is for coronary artery bypass grafting to the LAD, OM, and the right PDA and informed consent has been obtained. We will also leave temporary pacing wires due to concerns about his heart rate by Dr. Reynolds. Job ID: [id number]
--- NOTE | 2019-10-25 18:55 | PDOC.HOSPP ---
- Subjective Encounter Date: 10/25/19 Encounter Time: 08:40 Subjective: Pt seen for followup re: near-syncope. Feels better today. Had chest pain last night, not since then. - Objective Vital Signs & Weight: Vital Signs (12 hours) Temp Pulse Resp BP Pulse Ox 10/25/19 14:08 98 F 73 14 124/107 H 99 10/25/19 12:00 98.1 F 60 14 147/71 H Weight Weight 249 lb 8 oz I&O: 10/24/19 10/25/19 10/26/19 06:59 06:59 06:59 Intake Total 840 2017 1532.5 Output Total 925 1325 900 Balance -85 692 632.5 Result Diagrams: 10/24/19 03:58 10/24/19 03:58 Additional Labs: Accuchecks 10/25/19 10/25/19 10/25/19 18:29 11:57 05:34 POC Glucose 128 H 104 111 H 10/24/19 20:52 POC Glucose 122 H Labs and MARs reviewed by me EKG Reviewed by me: Yes (Tele: NSR) Hospitalist ROS - Review of Systems Constitutional: denies: fever, chills, sweats, weakness, malaise Cardiovascular: reports: chest pain. denies: palpitations, orthopnea, paroxysmal noc. dyspnea, edema, light headedness Gastrointestinal: denies: nausea, vomiting, abdominal pain, diarrhea, constipation, melena, hematochezia Genitourinary: denies: dysuria, frequency, incontinence, hematuria, retention Musculoskeletal: denies: neck pain, shoulder pain, arm pain, back pain, hand pain, leg pain, foot pain - Medication Medications: Active Medications Generic Name Dose Route Start Last Admin Trade Name Freq PRN Reason Stop Dose Admin Acetaminophen 650 mg 10/23/19 21:00 10/25/19 03:45 Tylenol PO 650 mg Q4H PRN Administration Headache/Fever/Mild Pain (1-3) Atorvastatin Calcium 40 mg 10/24/19 21:00 10/24/19 20:42 Lipitor PO 40 mg HS CHASIDY Administration Famotidine 20 mg 10/23/19 21:00 10/25/19 05:53 Pepcid PO 20 mg BID CHASIDY Administration Ondansetron HCl 4 mg 10/23/19 21:00 10/24/19 18:34 Zofran Odt PO 4 mg Q6H PRN Administration Nausea/Vomiting Senna/Docusate Sodium 2 tab 10/23/19 21:00 10/24/19 21:15 Senokot S PO 2 tab BID PRN Administration Constipation Sodium Chloride 10 ml 10/23/19 21:00 10/25/19 05:53 Flush - Normal Saline IVF Not Given Q12HR CHASIDY - Exam General - other findings: Obese Eye: anicteric sclera ENT: normocephalic atraumatic, no oropharyngeal lesions Neck: supple, symmetric, no thyromegaly, no lymphadenopathy Heart: RRR, no gallops, no rubs, normal peripheral pulses Respiratory: CTAB, no rales, no ronchi, normal chest expansion Gastrointestinal: soft, non-tender, non-distended, normal bowel sounds Skin: no rashes Psychiatric: normal affect, normal behavior, oriented to person, oriented to place, oriented to time Hosp A/P - Plan Hosp A/P (1) Near-syncope Code(s): R07.9 - CHEST PAIN, UNSPECIFIED Status: Acute (2) CAD (coronary artery disease) Code(s): I25.10 - ATHSCL HEART DISEASE OF [place] CORONARY ARTERY W/O ANG PCTRS Status: Chronic (3) DM type 2 (diabetes mellitus, type 2) Status: Chronic (4) Hypertension Code(s): I10 - ESSENTIAL (PRIMARY) HYPERTENSION Status: Chronic Qualifiers: Hypertension type: essential hypertension Qualified Code(s): I10 - Essential (primary) hypertension (5) Obesity Code(s): E66.9 - OBESITY, UNSPECIFIED Status: Chronic (6) Acute kidney injury on chronic stage 2 renal failure Code(s): N17.9 - ACUTE KIDNEY FAILURE, UNSPECIFIED Status: Resolved - Plan MRI brain: nil acute Multi vessel CAD, plan for CABG. Blood sugars well controlled, continue accuchecks and insulin sliding scale. Acute on chronic renal failure has resolved.
[2019-10-25] MEDS: Atorvastatin Calcium 40 MG TAB PO SCH (19:57)
[2019-10-25] MEDS: Senokot S 8.6-50 MG TAB PO PRN (19:59)
[2019-10-26] MEDS ORDERED: Albumin 5% 500 ML ONE (06:23)
[2019-10-26] MEDS ORDERED: Midazolam HCl 5 mg/5 ml Vial ONE (06:32)
[2019-10-26] MEDS ORDERED: Midazolam HCl 2 mg/2 ml Vial ONE (06:32)
[2019-10-26] MEDS ORDERED: Vecuronium 10 MG VIAL ONE ×3 (06:32→11:50)
[2019-10-26] MEDS ORDERED: Fentanyl 100 MCG/2 ML VIAL ONE (06:32)
[2019-10-26] MEDS ORDERED: Dexmedetomidine 200 MCG/2 ML VIAL ONE (06:33)
[2019-10-26] MEDS ORDERED: Heparin 10,000 UNITS/1 ML VIAL 30,000 UNITS in Sodium Chloride 0.9% 1,000 ML FS SCH (08:45)
[2019-10-26] MEDS ORDERED: Protamine Sulfate 250 MG/25 ML VIAL ONE (11:50)
[2019-10-26] MEDS ORDERED: Papaverine 60 MG/2 ML VIAL ONE (11:50)
[2019-10-26] MEDS ORDERED: Thrombin 5000 UNITS/5 ML VIAL ONE (11:50)
[2019-10-26] MEDS ORDERED: Ondansetron PF 4 MG/2 ML Vial ONE (11:50)
[2019-10-26] MEDS ORDERED: EPHEDRINE 25 MG/5 ML SYRINGE ONE (11:50)
[2019-10-26] MEDS ORDERED: PHENYLEPHRINE-NS 100 MCG/ML 10 ML SYRINGE ONE (11:50)
[2019-10-26] MEDS ORDERED: Lidocaine 2% PF 5 ML VIAL ONE (11:50)
[2019-10-26] MEDS ORDERED: Cardioplegic Soln 1,000 ML BAG ONE (11:50)
[2019-10-26] MEDS ORDERED: Ketorolac Tromethamine 30 MG/ML VIAL ONE (11:50)
[2019-10-26] MEDS ORDERED: Potassium Chloride 60 MEQ/30 ML VIAL ONE (11:50)
[2019-10-26] MEDS ORDERED: Heparin 5,000 UNITS/ML VIAL ONE (11:50)
[2019-10-26] MEDS ORDERED: Lidocaine 1% PF 5 ML VIAL ONE ×2 (11:50)
[2019-10-26] MEDS ORDERED: Calcium Chloride 1 GM/10 ML Abboject SYRINGE ONE (11:50)
[2019-10-26] MEDS ORDERED: Dexamethasone 20 MG/5 ML VIAL ONE (11:50)
[2019-10-26] MEDS ORDERED: Magnesium Sulfate 1 GM/2 ML VIAL ONE (11:50)
[2019-10-26] MEDS ORDERED: Sodium Bicarb 50 MEQ/50 ML Abboject 8.4% SYRINGE ONE (11:50)
[2019-10-26] MEDS ORDERED: Glycopyrrolate 0.2 MG/ML 5 ML SYRINGE ONE (11:50)
[2019-10-26] MEDS ORDERED: Aminocaproic Acid 5 GM/20 ML VIAL ONE (11:50)
[2019-10-26] MEDS ORDERED: Heparin 30,000 units/30 ml VIAL ONE (11:50)
[2019-10-26] MEDS ORDERED: Nitroglycerin 50 MG/250 ML BOT ONE (11:50)
[2019-10-26] MEDS ORDERED: Morphine 2 MG/ML SYRINGE SLOW IVP PRN (14:07)
[2019-10-26] MEDS ORDERED: Promethazine HCl 25 MG/ML VIAL IM PRN (14:07)
[2019-10-26] MEDS ORDERED: Acetaminophen 325 MG TAB PO PRN (14:07)
[2019-10-26] MEDS ORDERED: DOPamine 400 MG/D5W 250 ML 250 ML IVPB PRN (14:07)
[2019-10-26] MEDS ORDERED: niCARdipine 25 MG in Sodium Chloride 0.9% 250 ML 250 ML IVPB PRN (14:07)
[2019-10-26] MEDS ORDERED: Mag-Al 1200 mg/1200 mg/30 ML UDCUP PO PRN (14:07)
[2019-10-26] MEDS ORDERED: Hetastarch 6% 500 ML 500 ML IVPB PRN (14:07)
[2019-10-26] MEDS ORDERED: Guaifenesin DM 100-10/5 ML UDCUP PO PRN (14:07)
[2019-10-26] MEDS ORDERED: Nitroglycerin 50 MG/250 ML BOT 250 ML IVPB PRN (14:07)
[2019-10-26] MEDS ORDERED: Post-Op Insulin Drip Protocol IVPB ONE (14:07)
[2019-10-26] MEDS ORDERED: Fentanyl 100 MCG/2 ML VIAL SLOW IVP PRN (14:07)
[2019-10-26] MEDS ORDERED: Potassium Chloride 20 MEQ/100 ML PREMIX BAG IVPB PRN (14:07)
[2019-10-26] MEDS ORDERED: Bisacodyl 5 MG TAB PO PRN (14:07)
[2019-10-26] MEDS ORDERED: Bisacodyl 10 MG SUPP PR PRN (14:07)
[2019-10-26] MEDS ORDERED: HYDROcodone/Acetaminophen 5/325 mg Tablet PO PRN (14:07)
[2019-10-26] MEDS ORDERED: Magnesium 2 GM/50 ML 2 GM in Premix Bag 1 BAG IVPB SCH (14:07)
[2019-10-26] MEDS ORDERED: hydrALAZINE 20 MG/ML VIAL SLOW IVP PRN (14:07)
[2019-10-26] MEDS ORDERED: Norepinephrine 8 MG/0.9% NS 250 ML IVPB PRN (14:07)
[2019-10-26] MEDS ORDERED: Ondansetron PF 4 MG/2 ML Vial IVP PRN (14:07)
[2019-10-26] MEDS ORDERED: Dextrose 50% Abboject 50 ML SYRINGE SLOW IVP PRN (14:28)
[2019-10-26] MEDS ORDERED: HUMULIN R 100 UNITS in Sodium Chloride 0.9% 100 ML IVPB SCH (14:28)
[2019-10-26] MEDS ORDERED: Dextrose 5% in Water 1,000 ML IV PRN (14:28)
[2019-10-26] MEDS: Sodium Chloride 0.9% 1,000 ML IV SCH (14:45)
[2019-10-26 14:49] LABS: #Eosinphils 0.1 thou/uL (0.0-0.7); #Monocytes 0.8 thou/uL (0.11-0.59); #Neutrophils 14.2 thou/uL (1.40-6.50); %Basophils 0.1 % (0.0-1.0); %Eosinophils 0.4 % (0.0-10.0); %Lymphocytes 6.1 % (21.0-51.0); %Monocytes 5.2 % (0.0-10.0); %Neutrophils 88.2 % (42.0-75.0); Mean Corpuscular HGB CONC 33.1 g/dL (32.0-36.0); Mean Corpuscular Hemoglobin 30.8 pg (27.0-31.0); Mean Corpuscular Volume 92.9 fL (78.0-98.0); Mean Platelet Volume 6.8 fL (7.4-10.4); Platelet Count 212 thou/uL (130-400); RBC Distribution Width 12.2 % (11.5-14.5); Red Blood Cell (RBC) Count 4.56 mill/uL (4.70-6.10); White Blood Cell (WBC) Count 16.1 thou/uL (4.8-10.8)
--- NOTE | 2019-10-26 14:49 | RAD ---
EXAM: Single view of the chest HISTORY: Status post open heart surgery COMPARISON: 10/23/2019 FINDINGS: Single view of the chest shows an enlarged cardiomediastinal silhouette. The patient is st atus post CABG. A right subclavian central venous catheter seen with its tip in the superior vena cava. There is a left-sided chest tube. There may be a trace left pleural effusion. No right pleural effusion is seen. No pneumothorax is seen. The bones are unremarkable. IMPRESSION: Cardiomegaly
[2019-10-26] MEDS: Fentanyl 100 MCG/2 ML VIAL SLOW IVP PRN ×3 (14:55→19:48)
[2019-10-26 14:59] LABS: INR-International Normal Ratio 1.3; PTT 32.5 sec (22.9-36.1); Prothrombin Time 16.4 sec (12.0-14.7)
[2019-10-26] MEDS: Insulin Regular 300 UNITS/3 ML VIAL SC PRN (14:59)
[2019-10-26 15:10] LABS: Anion Gap 11 mmol/L (10-20); BUN (Urea Nitrogen) 7 mg/dL (8.4-25.7); Calc. Creatinine Clearance 105 mL/min (70-130); Calcium 8.3 mg/dL (7.8-10.44); Carbon Dioxide 20 mmol/L (23-31); Chloride 113 mmol/L (98-107); Estimated GFR-MDRD 83; Glucose 146 mg/dL (80-115); Potassium 4.2 mmol/L (3.5-5.1); Sodium 140 mmol/L (136-145)
[2019-10-26] MEDS: CEFAZOLIN 2 GM in Premix Bag 1 BAG IVPB SCH (16:28)
--- NOTE | 2019-10-26 17:40 | PDOC.HOSPP ---
- Subjective Encounter Date: 10/26/19 Encounter Time: 17:39 Subjective: Pt seen for followup re: syncope. s/p CABG today, denies chest pain. - Objective Vital Signs & Weight: Vital Signs (12 hours) Temp Pulse Resp BP Pulse Ox 10/26/19 15:00 100 10/26/19 14:39 100 10/26/19 07:13 98.1 F 62 18 173/79 H 97 10/26/19 07:08 100 Weight Weight 247 lb 9.6 oz Most Recent Monitor Data Heart Rate from ECG 70 NIBP 107/74 NIBP BP-Mean 85 Respiration from ECG 21 SpO2 100 I&O: 10/25/19 10/26/19 10/27/19 06:59 06:59 06:59 Intake Total 2016 2132.5 Output Total 1325 1175 495 Balance 692 957.5 -495 Result Diagrams: 10/26/19 14:40 10/26/19 14:40 Additional Labs: Accuchecks 10/26/19 10/26/19 10/26/19 13:36 13:04 12:38 POC Glucose 168 H 165 H 146 H 10/26/19 10/26/19 10/26/19 12:00 10:46 05:57 POC Glucose 151 H 136 H 118 H 10/25/19 10/25/19 20:46 18:29 POC Glucose 130 H 128 H Labs and MARs reviewed by me EKG Reviewed by me: Yes (Tele: NSR) Hospitalist ROS - Review of Systems Cardiovascular: denies: chest pain, palpitations, orthopnea, paroxysmal noc. dyspnea, edema, light headedness Gastrointestinal: denies: nausea, vomiting, abdominal pain, diarrhea, constipation, melena, hematochezia - Medication Medications: Active Medications Generic Name Dose Route Start Last Admin Trade Name Freq PRN Reason Stop Dose Admin Fentanyl 50 mcg 10/26/19 14:07 10/26/19 16:29 Sublimaze SLOW IVP 10/28/19 14:00 50 mcg Q2H PRN Administration Severe Pain (7-10) Cefazolin Sodium/Dextrose 2 gm 50 mls @ 100 mls/hr 10/26/19 16:00 10/26/19 16 :28 / Device IVPB 10/27/19 08:29 50 mls [id number] CHASIDY Administration Sodium Chloride 1,000 mls @ 100 mls/hr 10/26/19 14:07 10/26/19 14:45 Normal Saline 0.9% IV 1,000 mls .Q10H CHASIDY Administration Insulin Human Regular 0 units 10/26/19 14:28 10/26/19 14:59 Humulin R SC 2 unit Q4H PRN Administration POST CABG SLIDING SCALE Protocol - Exam General - other findings: Obesity Eye: anicteric sclera ENT: moist mucosa Neck: supple Heart: RRR Respiratory: CTAB Gastrointestinal: soft, non-tender Skin: no rashes Musculoskeletal: no muscle wasting Psychiatric: normal affect, normal behavior Hosp A/P - Plan Hosp A/P (1) Near-syncope Code(s): R07.9 - CHEST PAIN, UNSPECIFIED Status: Acute (2) CAD (coronary artery disease) Code(s): I25.10 - ATHSCL HEART DISEASE OF [place] CORONARY ARTERY W/O ANG PCTRS Status: Chronic (3) Hypertension Code(s): I10 - ESSENTIAL (PRIMARY) HYPERTENSION Status: Chronic Qualifiers: Hypertension type: essential hypertension Qualified Code(s): I10 - Essential (primary) hypertension (4) DM type 2 (diabetes mellitus, type 2) Status: Chronic (5) Obesity Code(s): E66.9 - OBESITY, UNSPECIFIED Status: Chronic (6) Acute kidney injury on chronic stage 2 renal failure Code(s): N17.9 - ACUTE KIDNEY FAILURE, UNSPECIFIED Status: Resolved - Plan s/p CABG today. Now in CCU. Blood sugars reasonably controlled, continue accuchecks and insulin sliding scale. HTN controlled
[2019-10-26] MEDS: Ketorolac Tromethamine 30 MG/ML VIAL IVP SCH (18:04)
[2019-10-26 18:16] LABS: Glucose 140 mg/dL (80-115)
--- NOTE | 2019-10-26 19:37 | EKG ---
Test Reason : POST CABG Blood Pressure : / mmHG Vent. Rate : 073 BPM Atrial Rate : 073 BPM P-R Int : 180 ms QRS Dur : 110 ms QT Int : 416 ms P-R-T Axes : 062 016 056 degrees QTc Int : 458 ms Sinus rhythm with frequent Premature ventricular complexes When compared with ECG of 24-OCT-2019 07:36, Premature ventricular complexes are now Present QT has lengthened Confirmed by DR. Yudi CAPPS (3) on 10/26/2019 7:37:41 PM Referred By: NICHOLAS Confirmed By:DR. Yudi CAPPS
[2019-10-26] MEDS: Famotidine/PF 20 mg/2ml Vial SLOW IVP SCH (20:13)
[2019-10-26] MEDS: Atorvastatin Calcium 20 MG TAB PO SCH (20:13)
[2019-10-26 20:20] LABS: Potassium 4.6 mmol/L (3.5-5.1)
[2019-10-26 20:24] LABS: Hemoglobin 14.4 g/dL (14.0-18.0)
[2019-10-26] MEDS: HYDROcodone/Acetaminophen 5/325 mg Tablet PO PRN (22:07)
[2019-10-27] MEDS: CEFAZOLIN 2 GM in Premix Bag 1 BAG IVPB SCH ×2 (00:12→08:42)
[2019-10-27] MEDS: Ketorolac Tromethamine 30 MG/ML VIAL IVP SCH ×2 (00:14→06:09)
[2019-10-27] MEDS: Sodium Chloride 0.9% 1,000 ML IV SCH ×3 (01:06→14:41)
[2019-10-27 03:52] LABS: #Lymphocytes 0.8 thou/uL (1.20-3.40); #Monocytes 1.5 thou/uL (0.11-0.59); #Neutrophils 8.9 thou/uL (1.40-6.50); %Basophils 0.2 % (0.0-1.0); %Eosinophils 0.1 % (0.0-10.0); %Lymphocytes 7.4 % (21.0-51.0); %Monocytes 13.2 % (0.0-10.0); Hemoglobin 13.1 g/dL (14.0-18.0); Mean Corpuscular HGB CONC 33.6 g/dL (32.0-36.0); Mean Corpuscular Volume 92.1 fL (78.0-98.0); Mean Platelet Volume 7.3 fL (7.4-10.4); Platelet Count 238 thou/uL (130-400); RBC Distribution Width 12.4 % (11.5-14.5); Red Blood Cell (RBC) Count 4.22 mill/uL (4.70-6.10); White Blood Cell (WBC) Count 11.2 thou/uL (4.8-10.8)
[2019-10-27 04:13] LABS: Anion Gap 9 mmol/L (10-20); BUN (Urea Nitrogen) 11 mg/dL (8.4-25.7); Calc. Creatinine Clearance 84 mL/min (70-130); Calcium 7.9 mg/dL (7.8-10.44); Carbon Dioxide 21 mmol/L (23-31); Chloride 112 mmol/L (98-107); Estimated GFR-MDRD 63; Glucose 128 mg/dL (80-115); Potassium 4.2 mmol/L (3.5-5.1); Sodium 138 mmol/L (136-145)
[2019-10-27] MEDS: HYDROcodone/Acetaminophen 5/325 mg Tablet PO PRN ×4 (04:18→20:26)
--- NOTE | 2019-10-27 07:29 | PRG ---
DATE OF SERVICE: 10/27/2019 The patient has been stable overnight. Currently sitting in the chair. His blood pressure is in the 130 range. Heart rate resting about 90 of the present time, sinus rhythm. His laboratory values show hemoglobin of 13.1, his creatinine is 1.36. Sugars have been controlled overnight with insulin as needed. Chest x-ray is clear. His chest tube output is at 350 mL. His lungs are clear and he has no specific complaints. We will go ahead and transfer him to the telemetry unit today and leave his chest tubes in this morning. Job ID: [id number]
--- NOTE | 2019-10-27 08:20 | OP ---
DATE OF PROCEDURE: 10/26/2019 PREOPERATIVE DIAGNOSIS: Coronary artery disease. PROCEDURES PERFORMED: Coronary artery bypass graft x3, left internal mammary artery good quality to a 2.5 mm LAD with disease in the wall. Saphenous vein small size to a 2 mm diseased distal OM and a 1.5 mm posterior lateral. FINGER BUFFS ASSEMBLER: Enzo. TRANSFUSION: None. DESCRIPTION OF PROCEDURE: After adequate anesthesia had been obtained, the patient was prepped and draped and I began an endovascular vein harvest of the right greater saphenous vein. Ultrasound had demonstrated identical veins bilaterally being rather small. Dr. Giraldo then completed the endovascular vein harvest converting it to open and then I performed a median sternotomy. The NDIAYE was harvested entering the left pleura. The patient heparinized. The mammary divided distally and passed posterior to the thymus gland. Aorta initially had pursestring sutures placed in an area anteriorly; however, the knife blade entered a plaque and for this reason, a separate site was chosen. Palpation of the aorta did not reveal the plaque. Following this, the right atrium was cannulated and cardiopulmonary bypass was begun. Aorta was cross-clamped and after a liter of cold blood cardioplegia was given, the 3 distal anastomoses were completed. Two proximal anastomoses were performed with the cross-clamp in place, following which the cross-clamp was removed. Rings were placed on the grafts, following which the patient was weaned from cardiopulmonary bypass. Cannulas were removed, and protamine was given systemically. Temporary ventricular pacing wires were placed at Dr. Reynolds's request. Mediastinal and left pleural drains were placed, following which the sternum was reapproximated with #7 interrupted wire using vancomycin paste on the sternal edges, platelet-rich blood, and platelet-poor plasma. Job ID: [id number]
--- NOTE | 2019-10-27 08:28 | RAD ---
PORTABLE CHEST: DATE: 10/27/2019. PROVIDED CLINICAL HISTORY: Post open heart. FINDINGS: Comparison . Significant interval change with respect to the prior examination is not appare nt. IMPRESSION: As above. POS: ROLF
[2019-10-27] MEDS: Famotidine/PF 20 mg/2ml Vial SLOW IVP SCH (08:43)
[2019-10-27] MEDS ORDERED: Aspirin 325 MG TAB PO SCH (09:00)
[2019-10-27] MEDS: Insulin Regular 300 UNITS/3 ML VIAL SC PRN ×2 (10:44→18:28)
[2019-10-27] MEDS ORDERED: Lorazepam 2 MG/ML VIAL ONE (14:08)
[2019-10-27] MEDS ORDERED: Sodium Chloride 0.9% 1,000 ML IV SCH (15:14)
[2019-10-27] MEDS ORDERED: Mineral Oil ENEMA PR PRN (15:14)
[2019-10-27] MEDS ORDERED: Milk Of Magnesia 30 ML UDCUP PO PRN (15:14)
[2019-10-27] MEDS ORDERED: Nitroglycerin 0.4 MG TAB (25 Tab Bottle) SL PRN (15:14)
[2019-10-27] MEDS ORDERED: Dextrose 50% Abboject 50 ML SYRINGE SLOW IVP PRN (15:26)
[2019-10-27] MEDS ORDERED: Dextrose 5% in Water 1,000 ML IV PRN (15:26)
[2019-10-27] MEDS ORDERED: Polyethylene Glycol 3350 17 GM Packet PO SCH (15:30)
[2019-10-27] MEDS: Famotidine 20 MG TAB PO SCH (15:41)
--- NOTE | 2019-10-27 20:22 | PDOC.HOSPP ---
- Subjective Encounter Date: 10/27/19 Encounter Time: 11:00 Subjective: Pt seen for followup re: near syncope. Feels better today. - Objective Vital Signs & Weight: Vital Signs (12 hours) Temp Pulse Resp BP Pulse Ox 10/27/19 19:45 99.4 F 86 18 148/73 H 94 L 10/27/19 14:20 98.5 F 87 20 167/81 H 20 L 10/27/19 12:00 99 F Weight Weight 259 lb 14.4 oz Most Recent Monitor Data Heart Rate from ECG 79 NIBP 154/87 NIBP BP-Mean 109 Respiration from ECG 25 SpO2 96 I&O: 10/26/19 10/27/19 10/28/19 06:59 06:59 06:59 Intake Total 2132.5 2269 630 Output Total 1175 1115 310 Balance 957.5 1154 320 Result Diagrams: 10/27/19 03:35 10/27/19 03:35 Additional Labs: Accuchecks 10/27/19 10/27/19 10/27/19 18:20 12:30 10:44 POC Glucose 131 H 114 H 159 H 10/27/19 10/26/19 10/26/19 00:41 20:00 14:45 POC Glucose 114 H 121 H 139 H 10/26/19 14:15 POC Glucose 143 H Labs and MARs reviewed by me EKG Reviewed by me: Yes (Tele: NSR) Hospitalist ROS - Review of Systems Cardiovascular: denies: chest pain, palpitations, orthopnea, paroxysmal noc. dyspnea, edema, light headedness Gastrointestinal: denies: nausea, vomiting, abdominal pain, diarrhea, constipation, melena, hematochezia - Medication Medications: Active Medications Generic Name Dose Route Start Last Admin Trade Name Freq PRN Reason Stop Dose Admin Hydrocodone Bitart/Acetaminophen 2 tab 10/26/19 14:07 10/27/19 14:37 [place] 5/325 PO 2 tab Q4H PRN Administration Severe Pain (7-10) Atorvastatin Calcium 20 mg 10/26/19 21:00 10/26/19 20:13 Lipitor PO 20 mg QPM CHASIDY Administration Fentanyl 50 mcg 10/26/19 14:07 10/26/19 19:48 Sublimaze SLOW IVP 10/28/19 14:00 50 mcg Q2H PRN Administration Severe Pain (7-10) Insulin Human Regular 0 units 10/27/19 15:26 10/27/19 18:28 Humulin R SC 2 unit Q4H PRN Administration POST OP SLIDING SCALE Protocol - Exam General - other findings: Obese Eye: anicteric sclera ENT: normocephalic atraumatic Neck: supple Heart: RRR Respiratory: CTAB, no rales Gastrointestinal: soft, non-tender, normal bowel sounds Extremities: no cyanosis Skin: normal turgor Psychiatric: normal affect, normal behavior Hosp A/P - Plan Hosp A/P (1) Near-syncope Code(s): R07.9 - CHEST PAIN, UNSPECIFIED Status: Acute (2) CAD (coronary artery disease) Code(s): I25.10 - ATHSCL HEART DISEASE OF [place] CORONARY ARTERY W/O ANG PCTRS Status: Chronic (3) Hypertension Code(s): I10 - ESSENTIAL (PRIMARY) HYPERTENSION Status: Chronic Qualifiers: Hypertension type: essential hypertension Qualified Code(s): I10 - Essential (primary) hypertension (4) DM type 2 (diabetes mellitus, type 2) Status: Chronic (5) Obesity Code(s): E66.9 - OBESITY, UNSPECIFIED Status: Chronic (6) Acute kidney injury on chronic stage 2 renal failure Code(s): N17.9 - ACUTE KIDNEY FAILURE, UNSPECIFIED Status: Resolved - Plan s/p CABG yesterday continue accuchecks and insulin sliding scale. HTN controlled Transfer to telemetry floor
[2019-10-27] MEDS: Atorvastatin Calcium 20 MG TAB PO SCH (20:26)
[2019-10-28] MEDS: HYDROcodone/Acetaminophen 5/325 mg Tablet PO PRN ×4 (01:13→20:14)
[2019-10-28 05:01] LABS: Anion Gap 9 mmol/L (10-20); BUN (Urea Nitrogen) 12 mg/dL (8.4-25.7); Calc. Creatinine Clearance 102 mL/min (70-130); Calcium 7.5 mg/dL (7.8-10.44); Carbon Dioxide 25 mmol/L (23-31); Chloride 109 mmol/L (98-107); Estimated GFR-MDRD 75; Glucose 117 mg/dL (80-115); Potassium 3.9 mmol/L (3.5-5.1); Sodium 139 mmol/L (136-145)
[2019-10-28] MEDS: Aspirin 325 mg Enteric Coated Tablet PO SCH (08:44)
[2019-10-28] MEDS: Polyethylene Glycol 3350 17 GM Packet PO SCH (08:44)
[2019-10-28] MEDS: Potassium Chloride 10 MEQ TAB PO SCH (08:45)
[2019-10-28] MEDS: Furosemide 40 MG TAB PO SCH (08:45)
[2019-10-28] MEDS ORDERED: Metoprolol Tartrate 25 MG TAB PO SCH (10:45)
[2019-10-28] MEDS: Insulin Regular 300 UNITS/3 ML VIAL SC PRN ×2 (11:51→18:20)
--- NOTE | 2019-10-28 18:10 | PDOC.HOSPP ---
- Subjective Encounter Date: 10/28/19 Encounter Time: 08:00 Subjective: Pt seen for followup re: CAD. Denies chest pain or shortness of breath, fevers or chills. - Objective Vital Signs & Weight: Vital Signs (12 hours) Temp Pulse Pulse Pulse Resp BP BP 10/28/19 16:06 75 12 10/28/19 15:39 99.2 F 79 20 10/28/19 14:38 79 72 175/89 H 177/89 H 10/28/19 11:56 98.3 F 87 22 H 10/28/19 10:05 79 90 162/82 H 179/90 H 10/28/19 07:40 98.3 F 80 14 BP Pulse Ox Pulse Ox Pulse Ox 10/28/19 16:06 10/28/19 15:39 165/86 H 92 L 10/28/19 14:38 94 L 92 L 10/28/19 11:56 177/93 H 93 L 10/28/19 10:05 92 L 92 L 10/28/19 07:40 174/80 H 92 L Weight Weight 258 lb 1.6 oz Most Recent Monitor Data Heart Rate from ECG 79 NIBP 154/87 NIBP BP-Mean 109 Respiration from ECG 25 SpO2 96 I&O: 10/27/19 10/28/19 10/29/19 06:59 06:59 06:59 Intake Total 2269 870 Output Total 1115 760 320 Balance 1154 110 -320 Result Diagrams: 10/27/19 03:35 10/28/19 04:31 Additional Labs: Accuchecks 10/28/19 10/28/19 10/27/19 11:01 05:51 20:10 POC Glucose 144 H 117 H 120 H 10/27/19 18:20 POC Glucose 131 H Labs and MARs reviewed by me EKG Reviewed by me: Yes (Tele: NSR) Hospitalist ROS - Review of Systems Cardiovascular: denies: chest pain, palpitations, orthopnea, paroxysmal noc. dyspnea, edema Skin: denies: rash, lesions, monse, bruising - Medication Medications: Active Medications Generic Name Dose Route Start Last Admin Trade Name Freq PRN Reason Stop Dose Admin Hydrocodone Bitart/Acetaminophen 2 tab 10/26/19 14:07 10/28/19 11:12 [place] 5/325 PO 2 tab Q4H PRN Administration Severe Pain (7-10) Albuterol/Ipratropium 3 ml 10/28/19 13:00 10/28/19 16:06 Duoneb NEB 3 ml [id number] CHASIDY Administration Aspirin 325 mg 10/28/19 09:00 10/28/19 08:44 Ecotrin PO 325 mg DAILY CHASIDY Administration Atorvastatin Calcium 20 mg 10/26/19 21:00 10/27/19 20:26 Lipitor PO 20 mg QPM CHASIDY Administration Furosemide 40 mg 10/28/19 09:00 10/28/19 08:45 Lasix PO 40 mg DAILY CHASIDY Administration Insulin Human Regular 0 units 10/27/19 15:26 10/28/19 11:51 Humulin R SC 3 unit Q4H PRN Administration POST OP SLIDING SCALE Protocol Polyethylene Glycol 17 gm 10/28/19 09:00 10/28/19 08:44 Miralax PO 17 gm DAILY CHASIDY Administration Potassium Chloride 10 meq 10/28/19 08:00 10/28/19 08:45 Klor-Con 10 PO 10 meq QAM-WM CHASIDY Administration - Exam General Appearance: awake alert Eye: anicteric sclera ENT: moist mucosa Neck: supple Heart: RRR Respiratory: CTAB Gastrointestinal: soft, non-tender Psychiatric: normal affect, normal behavior Hosp A/P - Plan Hosp A/P (1) CAD (coronary artery disease) Code(s): I25.10 - ATHSCL HEART DISEASE OF [place] CORONARY ARTERY W/O ANG PCTRS Status: Chronic (2) Hypertension Code(s): I10 - ESSENTIAL (PRIMARY) HYPERTENSION Status: Chronic Qualifiers: Hypertension type: essential hypertension Qualified Code(s): I10 - Essential (primary) hypertension (3) DM type 2 (diabetes mellitus, type 2) Status: Chronic (4) Obesity Code(s): E66.9 - OBESITY, UNSPECIFIED Status: Chronic (5) Acute kidney injury on chronic stage 2 renal failure Code(s): N17.9 - ACUTE KIDNEY FAILURE, UNSPECIFIED Status: Resolved (6) Near-syncope Code(s): R07.9 - CHEST PAIN, UNSPECIFIED Status: Resolved - Plan s/p CABG Blood sugars controlled HTN controlled Pt is on telemetry floor
[2019-10-28] MEDS: Metoprolol Tartrate 25 MG TAB PO SCH (20:15)
[2019-10-28] MEDS: Atorvastatin Calcium 20 MG TAB PO SCH (20:15)
[2019-10-29] MEDS: HYDROcodone/Acetaminophen 5/325 mg Tablet PO PRN (04:11)
[2019-10-29] MEDS: Metoprolol Tartrate 25 MG TAB PO SCH (09:26)
[2019-10-29] MEDS: Polyethylene Glycol 3350 17 GM Packet PO SCH (09:26)
[2019-10-29] MEDS: Aspirin 325 mg Enteric Coated Tablet PO SCH (09:26)
[2019-10-29] MEDS: Potassium Chloride 10 MEQ TAB PO SCH (09:26)
[2019-10-29] MEDS: Furosemide 40 MG TAB PO SCH (09:26)
[2019-10-29] MEDS ORDERED: traMADol HCl 50 MG TAB PO PRN (10:48)
--- NOTE | 2019-10-29 10:49 | PDOC.CPN ---
- Subjective Date: 10/29/19 Time: 10:45 Interval history: Mr. Galvan is feeling good, ready to go home. He is ambulating in the halls s / assistance. He denies any incisional pain this morning, states had a BM yesterday morning. He denies any acute cardiac complaints or concerns. He denies any recurrence of wheezing. No overnight events on telemetry. - Review of Systems General: denies: fever/chills, weight/appetite/sleep changes, night sweats, fatigue Respiratory: denies: cough, congestion, shortness of breath, exercise intolerance Cardiovascular: denies: chest pain, palpitation, edema, paroxysmal nocturnal dyspnea, orthopnea Gastrointestinal: denies: nausea, vomiting, diarrhea, constipation, abd pain, GI bleeding Musculoskeletal: denies: pain, tenderness, stiffness, swelling, arthritis/ arthralgias Neurological: denies: numbness, syncope, seizure, weakness - Objective Allergies/Adverse Reactions: Allergies Allergy/AdvReac Type Severity Reaction Status Date / Time No Known Drug Allergies Allergy Verified 10/23/19 22:17 Visit Medications: Current Medications Acetaminophen (Tylenol) 650 mg PO Q6H PRN PRN Reason: Headache/Fever Or Mild Pain Hydrocodone Bitart/Acetaminophen ([place] 5/325) 1 tab PO Q4H PRN PRN Reason: Moderate Pain (4-6) Hydrocodone Bitart/Acetaminophen ([place] 5/325) 2 tab PO Q4H PRN PRN Reason: Severe Pain (7-10) Last Admin: 10/29/19 04:11 Dose: 2 tab Al Hydroxide/Mg Hydroxide (Maalox) 30 ml PO Q4H PRN PRN Reason: Indigestion Last Admin: 10/28/19 20:13 Dose: 30 ml Albuterol/Ipratropium (Duoneb) 3 ml NEB [id number] [facility] Last Admin: 10/29/19 06:45 Dose: 3 ml Aspirin (Ecotrin) 325 mg PO DAILY [facility] Last Admin: 10/29/19 09:26 Dose: 325 mg Atorvastatin Calcium (Lipitor) 20 mg PO QPM [facility] Last Admin: 10/28/19 20:15 Dose: 20 mg Bisacodyl (Dulcolax) 10 mg PO Q12H PRN PRN Reason: Constipation Bisacodyl (Dulcolax) 10 mg HI Q12H PRN PRN Reason: Constipation Dextrose/Water (Dextrose 50%) 25 gm SLOW IVP PRN PRN PRN Reason: PER HYPOGLYCEMIC PROTOCOL Furosemide (Lasix) 40 mg PO DAILY [facility] Last Admin: 10/29/19 09:26 Dose: 40 mg Glucagon (Glucagon) 1 mg SC PRN PRN PRN Reason: PER HYPOGLYCEMIC PROTOCOL Guaifenesin/Dextromethorphan (Robitussin Dm) 15 ml PO Q4H PRN PRN Reason: Cough Hydralazine HCl (Apresoline) 10 mg SLOW IVP Q6H PRN PRN Reason: To Maintain SBP< 140mmHG Dextrose/Water (D5w) 1,000 mls @ 0 mls/hr IV INF PRN PRN Reason: PRN HYPOGLYCEMIC PROTOCOL Insulin Human Regular (Humulin R) 0 units SC Q4H PRN; Protocol PRN Reason: POST OP SLIDING SCALE Last Admin: 10/28/19 18:20 Dose: 2 unit Magnesium Hydroxide (Milk Of Magnesium) 30 ml PO Q12H PRN PRN Reason: Constipation Metoprolol Tartrate (Lopressor) 25 mg PO BID [facility] Last Admin: 10/29/19 09:26 Dose: 25 mg Mineral Oil (Fleet Mineral Oil) 133 ml HI DAILYPRN PRN PRN Reason: Constipation Nitroglycerin (Nitrostat) 0.4 mg SL Q5MIN PRN PRN Reason: Chest Pain Ondansetron HCl (Zofran) 4 mg IVP Q6H PRN PRN Reason: Nausea/Vomiting Polyethylene Glycol (Miralax) 17 gm PO DAILY [facility] Last Admin: 10/29/19 09:26 Dose: Not Given Potassium Chloride (Klor-Con 10) 10 meq PO QAM-WM [facility] Last Admin: 10/29/19 09:26 Dose: 10 meq Vital Signs & Weight: Vital Signs Temp Pulse Resp BP Pulse Ox 10/29/19 08:10 95 10/29/19 08:08 98.8 F 84 12 172/82 H 96 10/29/19 06:45 79 16 10/29/19 03:05 99.6 F 88 18 150/73 H 93 L 10/29/19 01:23 92 L 10/29/19 01:20 82 14 92 L Weight 259 lb 9.6 oz - Quality Measures Condition: Coronary Artery Disease CV meds: Beta Johann: Yes, GINGER/ARB: Yes, Statin: Yes, ASA: Yes - Medication Contraindications No Antithrombotic reason: Treatment not indicated No Anticoagulant reason: Treatment not indicated - Physical Exam General: alert & oriented x3, appears well, no apparent distress HEENT: mucus membranes moist Neck: supple neck, no masses Cardiac: regular rate and rhythm, no murmur, S1/S2 Lungs: clear to auscultation, normal breath sounds, no wheeze, rales, rhonchi Neuro: grossly intact Abdomen: active bowel sounds, soft, non-tender Extremities: no cyanosis, no clubbing, other: (trace BLE edema) Skin: clear Musculoskeletal: normal range of motion - Labs Result Diagrams: 10/27/19 03:35 10/28/19 04:31 Troponin/CKMB Troponin I 0.029 ng/mL (< 0.028) H 10/23/19 21:12 - Telemetry Sinus rhythms and dysrhythmias: sinus rhythm (HR 80s) - Assessment/Plan Assessment/Plan: Assessment: 1. CAD, S/P CABG 2. HTN-labile, resume home medication 3. Bradycardia-stable, resolved 4. Hypercholesterolemia-continue statin 5. DM Type II Plan: Doing well, no incisional pain. BP remains labile, resume olmesartan-amlodipine -HCTZ. Encouraged to ambulate at home, monitor BP at home. Needs follow-up with BREANNE Kaplan/Dr. Reynolds 3 weeks.
[2019-10-29 12:14] VITALS: TEMP 99.7
[2019-10-29 12:47] VITALS: BP 188/89
--- NOTE | 2019-10-29 13:02 | EKG ---
Test Reason : DIZZINESS Blood Pressure : / mmHG Vent. Rate : 069 BPM Atrial Rate : 069 BPM P-R Int : 180 ms QRS Dur : 104 ms QT Int : 396 ms P-R-T Axes : 063 000 042 degrees QTc Int : 424 ms Normal sinus rhythm Possible Inferior infarct , age undetermined Abnormal ECG Confirmed by RICARDO LANDEROS DO ([id number]), social media editor FLORES FRITZ ([id number]) on 10/29/2019 1:02:29 PM Referred By: Confirmed By:RICARDO LANDEROS DO
--- NOTE | 2019-10-30 00:11 | DIS ---
DATE OF ADMISSION: 10/23/2019 DATE OF DISCHARGE: 10/29/2019 DISCHARGE DISPOSITION: Home. FOLLOWUP: Follow up with primary care physician, Dr. Chandler Hand, in 1 week. Follow up with Cardiology, Dr. Ketan Reynolds, and cardiovascular, Dr. Watson, as scheduled. ALLERGIES: NO KNOWN DRUG ALLERGIES. PATIENT WAS SEEN AND EXAMINED ON THE DAY OF DISCHARGE. DENIES ANY NEW COMPLAINTS. NO CHEST PAIN, SHORTNESS OF BREATH, OR PALPITATIONS REPORTED. DISCHARGE MEDICATIONS: 1. Aspirin 81 mg daily. 2. Metformin 500 mg b.i.d. 3. Tribenzor 20//12.5 daily. 4. Lipitor 20 mg daily. 5. Metoprolol tartrate 25 mg b.i.d. 6. Tramadol as needed. BRIEF HOSPITAL COURSE: Patient is a 68-year-old male, with coronary artery disease; diabetes mellitus, type 2; and hypertension, presented to the hospital with chest discomfort along with near syncope. He was monitored on the telemetry unit. The patient was evaluated by Cardiology, Dr. Reynolds. Cardiac catheterization was performed that was consistent with 3-vessel disease. He underwent coronary artery bypass grafting on October 26, 2019, by Dr. Travis Watson. Postoperatively, he did well. He was later transferred to the telemetry unit. He has been cleared by Cardiology and Cardiovascular for discharge. DIAGNOSTIC TESTS: 1. MRI of the brain noncontrast showed mild chronic ischemic white matter changes with evidence of occlusion of the left vertebral artery and tiny old lacunar infarction at the right anterior upper diane. An outpatient CT angiogram of the head and neck is recommended. Primary care physician advised to follow. 2. Echocardiogram showed left ventricular ejection fraction of 50% to 55% with diastolic dysfunction, mild mitral regurgitation, mild tricuspid regurgitation. FINAL DIAGNOSES: 1. Chest discomfort with near syncope, suspected unstable angina, present on admission. 2. Three-vessel coronary artery disease, status post coronary artery bypass graft. 3. Obesity with a BMI of 39.5. 4. Hypertension. 5. Hyperlipidemia. 6. Diabetes mellitus, type 2. 7. History of prostate cancer. 8. Occlusion of the left vertebral artery. 9. Tiny old lacunar infarction in the right anterior upper diane. 10. Coronary artery disease, status post coronary artery bypass graft this admission. 11. Episodes of bradycardia with heart rate in 40s with lightheadedness and dizziness. 12. Patient and the family understand the above plan of care. Job ID: [id number]
== END 2019-10-29 12:33 | disposition home or self-care (01) | DRG 234 ==
LOC: ERS 14:15 → OBSVTOIN 21:34 → 2NO 21:34 → 3SE 10-24 12:00 → 2NO 10-24 12:02 → CCU 10-26 07:53 → 2NO 10-27 14:13
PROVIDERS: ADMIT Internal Medicine; ATTEND Internal Medicine
PROC: 4A023N7 Measurement of Cardiac Sampling and Pressure, Left Heart, Percutaneous Approach (ICD-10-PCS; 2019-10-25)
PROC: B2111ZZ Fluoroscopy of Multiple Coronary Arteries using Low Osmolar Contrast (ICD-10-PCS; 2019-10-25)
PROC: B2151ZZ Fluoroscopy of Left Heart using Low Osmolar Contrast (ICD-10-PCS; 2019-10-25)
PROC: 021109W Bypass Coronary Artery, Two Arteries from Aorta with Autologous Venous Tissue, Open Approach (ICD-10-PCS; principal; 2019-10-26)
PROC: 02100Z9 Bypass Coronary Artery, One Artery from Left Internal Mammary, Open Approach (ICD-10-PCS; 2019-10-26)
PROC: 06BQ0ZZ Excision of Left Saphenous Vein, Open Approach (ICD-10-PCS; 2019-10-26)
PROC: 06BP0ZZ Excision of Right Saphenous Vein, Open Approach (ICD-10-PCS; 2019-10-26)
PROC: 5A1221Z Performance of Cardiac Output, Continuous (ICD-10-PCS; 2019-10-26)
DX: I25.110 Atherosclerotic heart disease of native coronary artery with unstable angina pectoris (principal); N17.9 Acute kidney failure, unspecified; E66.9 Obesity, unspecified; E78.5 Hyperlipidemia, unspecified; I65.02 Occlusion and stenosis of left vertebral artery; E78.00 Pure hypercholesterolemia, unspecified; E11.51 Type 2 diabetes mellitus with diabetic peripheral angiopathy without gangrene; N18.2 Chronic kidney disease, stage 2 (mild); E11.22 Type 2 diabetes mellitus with diabetic chronic kidney disease; I12.9 Hypertensive chronic kidney disease with stage 1 through stage 4 chronic kidney disease, or unspecified chronic kidney disease; R00.1 Bradycardia, unspecified; Z68.39 Body mass index [BMI] 39.0-39.9, adult; Z85.46 Personal history of malignant neoplasm of prostate; Z86.73 Personal history of transient ischemic attack (TIA), and cerebral infarction without residual deficits; Z95.5 Presence of coronary angioplasty implant and graft; Z90.49 Acquired absence of other specified parts of digestive tract; Z79.899 Other long term (current) drug therapy; Z79.82 Long term (current) use of aspirin; Z79.84 Long term (current) use of oral hypoglycemic drugs; Z90.79 Acquired absence of other genital organ(s)
CPT/HCPCS: 36415; 36416; 36430; 70551; 71045; 76942; 80048; 80053; 80061; 82550; 83036; 83735; 83880; 84443; 84484; 85025; 85347; 85610; 85730; 86850; 86900; 86901; 93005; 93010; 93306; 93458; 93798; 93880; 94640; 94760; 96360; 99152; G0378; J0690; J1100; J1642; J1644; J1815; J1885; J2001; J2060; J2250; J2405; J2440; J2720; J3010; J3370; J3475; J3480; J7620; P9045; Q0162; Q9967; S0017; S0028

== ENCOUNTER 2019-10-31 06:01 | Observation (INO) | payer BC, MEDICARE ==
[2019-10-31 06:46] LABS: #Eosinphils 0.2 thou/uL (0.0-0.7); #Lymphocytes 0.8 thou/uL (1.20-3.40); #Monocytes 1.2 thou/uL (0.11-0.59); #Neutrophils 8.1 thou/uL (1.40-6.50); %Basophils 0.1 % (0.0-1.0); %Lymphocytes 8.1 % (21.0-51.0); %Monocytes 11.8 % (0.0-10.0); Hemoglobin 11.9 g/dL (14.0-18.0); Mean Corpuscular HGB CONC 33.3 g/dL (32.0-36.0); Mean Corpuscular Hemoglobin 31.1 pg (27.0-31.0); Mean Corpuscular Volume 93.4 fL (78.0-98.0); Mean Platelet Volume 7.3 fL (7.4-10.4); Platelet Count 340 thou/uL (130-400); RBC Distribution Width 12.4 % (11.5-14.5); Red Blood Cell (RBC) Count 3.82 mill/uL (4.70-6.10); White Blood Cell (WBC) Count 10.4 thou/uL (4.8-10.8)
[2019-10-31] MEDS ORDERED: Morphine 4 MG/ML VIAL ONE (06:58)
[2019-10-31 07:09] LABS: ALT (SGPT) 40 U/L (8-55); AST (SGOT) 29 U/L (5-34); Albumin 3.4 g/dL (3.4-4.8); Alkaline Phosphatase 87 U/L (40-110); Anion Gap 16 mmol/L (10-20); BUN (Urea Nitrogen) 15 mg/dL (8.4-25.7); Bilirubin, Total 0.9 mg/dL (0.2-1.2); CK (CPK) 204 U/L (30-200); Calc. Creatinine Clearance 0 mL/min (70-130); Calcium 8.6 mg/dL (7.8-10.44); Carbon Dioxide 25 mmol/L (23-31); Chloride 100 mmol/L (98-107); Estimated GFR-MDRD 78; Globulin 2.7 g/dL (2.4-3.5); Glucose 113 mg/dL (80-115); Potassium 3.9 mmol/L (3.5-5.1); Protein, Total 6.1 g/dL (5.8-8.1); Sodium 137 mmol/L (136-145)
[2019-10-31 07:37] LABS: CKMB 1.3 ng/mL (0-6.6)
--- NOTE | 2019-10-31 08:19 | RAD ---
CHEST 1 VIEW: INDICATION: History of chest pain, coronary artery bypass graft. COMPARISON: Prior study dated 10/27/2019. FINDINGS: There is stable cardiomegaly. Midline sternotomy changes are similar-appearing. Lungs are clear. C alcified granuloma in the right lung base is similar-appearing. Previously seen right subclavian berry tral venous catheter has been removed. No definite pleural effusion or pneumothorax is evident. IMPRESSION: No definite acute cardiopulmonary abnormality. Stable cardiomegaly. POS: BH
--- NOTE | 2019-10-31 08:22 | CT ---
CTA OF THE HEAD WITH AND WITHOUT IV CONTRAST AND 3-D REFORMATTED IMAGING. CTA OF THE NECK WITH IV CONTRAST AND 3-D REFORMATTED IMAGING. INDICATION: 68-year-old male with dizziness and posterior neck pain COMPARISON: MR the brain dated October 24, [address] the brain dated May 30, 2009. FINDINGS: CTA OF THE HEAD WITH AND WITHOUT CONTRAST: NONCONTRAST CT OF BRAIN: Hemorrhage: None Ischemia/Infarction: None. Midline Shift: None. Hydrocephalus: None. Skull and Extracranial Soft tissues: Normal. CTA OF THE BRAIN: Right ICA: Patent. Right MCA: Patent. Right JEWELS: Patent. ACOM: Patent. Left ICA: Patent. Left MCA: Patent. Left JEWELS: Patent. PCOMs: Patent. Vertebral arteries: The left vertebral artery is diminutive. The right vertebral artery is patent. Basilar Artery: Patent. lead sustainability specialist: Patent. Incidentals: None. CTA OF THE NECK WITH CONTRAST: Right CCA: Patent. Right ICA: There is mild narrowing of the origin of the right internal carotid artery by approximate ly 25%. The remaining cervical course is widely patent. Right Subclavian: Patent. Right Vertebral Artery: There is mild irregularity involving the proximal aspect of the right verteb ral artery; however, the remaining cervical course is widely patent. Left CCA: Patent. Left ICA: There is mild luminal caliber narrowing involving the proximal left ICA as well as the mid to distal left ICA with approximately 25-30% luminal caliber narrowing. The remaining course of the left ICA within the neck is patent. Left Subclavian: Patent. Left Vertebral Artery: The left vertebral artery is occluded within the majority of its cervical cou rse. There is some reconstitution of flow at approximately the left C2 transverse foramen that continues through its intracranial course. Very minimal antegrade flow is seen at the origin of the l eft vertebral artery. Aerodigestive tract: Clear. Parotids/Submandibular/Thyroid glands: Normal. Lymph nodes: No pathologically enlarged lymph nodes. Lung Apices: Clear. Bones: No acute osseous abnormality. Incidentals: There is soft tissue gas involving the right chest wall and right base of neck. IMPRESSION: 1. Chronic left vertebral artery occlusion. 2. Soft tissue gas within the right aspect of the chest wall and right base of neck may be postsurgic al and related to the patient's recent coronary artery bypass 3. Mild luminal caliber narrowing of the cervical ICAs bilaterally. 4. No acute intracranial abnormality.
[2019-10-31 13:26] VITALS: BMI 39.6
[2019-10-31] MEDS ORDERED: Iopamidol-370 76% 500 ML 1 ML ONE (13:39)
[2019-10-31] MEDS ORDERED: hydrALAZINE 20 MG/ML VIAL SLOW IVP PRN (19:39)
[2019-10-31] MEDS ORDERED: HumaLOG 300 UNITS/3 ML VIAL SC PRN ×2 (19:39)
[2019-10-31] MEDS ORDERED: traMADol HCl 50 MG TAB PO PRN (19:39)
[2019-10-31] MEDS ORDERED: Acetaminophen 325 MG TAB PO PRN (19:39)
[2019-10-31] MEDS ORDERED: Dextrose 5% in Water 1,000 ML IV PRN (19:39)
[2019-10-31] MEDS ORDERED: Dextrose 50% Abboject 50 ML SYRINGE SLOW IVP PRN (19:39)
[2019-10-31] MEDS ORDERED: Sodium Chloride 0.9% 500 ML IV SCH (19:45)
--- NOTE | 2019-10-31 20:09 | HP ---
PRIMARY CARE PHYSICIAN: Chandler Hand MD COURT SECURITY OFFICER: Ketan Reynolds MD CHIEF COMPLAINT: Feeling dizzy. HISTORY OF PRESENT ILLNESS: Mr. Galvan is a very pleasant 68-year-old gentleman, who has a history of coronary artery disease. He was discharged about 3 days ago after having coronary artery bypass grafting surgery. He says he was feeling fine on Thursday when he left the hospital and then on earlier today, he says that he got up to go to the bathroom and then was feeling extremely dizzy. He said it was not like the room was spinning because he has had vertigo before and he knows what that felt like. It felt like he wanted to faint. He said he got up early that morning and the covers were basically soaking wet and he has been having some cold sweats off and on. He was concerned about the dizziness and his said it was best that he come to the ER for evaluation. They called an ambulance and brought him to the hospital. He says he was not having any chest pain and in fact his chest starting to feel "better." He denied any shortness of breath. He denies any PND nor orthopnea. He did mention having some pain in the side of his neck when he got up this morning, but this has since gone away. He admits that he has not had much appetite. He says he does not like the food and the heart healthy diet. He admits that he may not have been drinking enough water, but has been drinking a lot of orange juice. He denies any leg pain or leg swelling. No fevers, no chills. No PND, no orthopnea, and otherwise no other complaints. REVIEW OF SYSTEMS: All systems were reviewed and are negative except for that mentioned in the history of present illness. PAST MEDICAL HISTORY: Significant for coronary artery disease, hypertension, diabetes mellitus. PAST SURGICAL HISTORY: He has had stent placed, coronary stent as well as three vessel bypass. He had an appendectomy at age 10. ALLERGIES: NO KNOWN DRUG ALLERGIES. SOCIAL HISTORY: He is . He has several children. He occasionally drinks some wine with dinner. He denies any hard liquor and he denies any drug use. He is a former smoker. He says he quit in 2002. He says he "flirted with marijuana", but has not really smoked a lot. He says he may have smoked about a month ago. FAMILY HISTORY: Significant for coronary artery disease and cancer. CURRENT MEDICATIONS: 1. Tramadol 50 mg q.6 as needed. 2. Lopressor 25 mg p.o. b.i.d. 3. Olmesartan amlodipine hydrochlorothiazide daily. 4. Metformin 500 mg twice daily. 5. Lipitor 20 mg daily. 6. Aspirin 81 mg a day. PHYSICAL EXAMINATION: GENERAL: He is alert and oriented. He appears to be in no acute distress. He is well developed and well nourished. VITAL SIGNS: Blood pressure was 125/60, heart rate 76, respiratory rate of 20, temperature was 99.0. HEENT: Pupils are equal, round, and reactive. Extraocular muscles are intact. His sclerae are anicteric. Throat, there is no erythema, no exudates. He has poor dentition. NECK: There is no adenopathy, no bruits. LUNGS: Clear to auscultation. There is no wheezing, no rales, no rhonchi. CARDIOVASCULAR: He has a normal S1, S2. There is no S3 or S4. He did have a grade 2/6 systolic murmur, which radiates into the axilla. ABDOMEN: Obese. It is soft, nontender, and nondistended. Positive for bowel sounds. There is no rebound, no guarding, no organomegaly. EXTREMITIES: He has trace pedal edema. There is no calf tenderness. No joint effusions. NEUROLOGIC: Grossly nonfocal. SKIN AND INTEGUMENT: There are no skin changes. No rash. LABORATORY DATA: White blood cell count is 10.4, hemoglobin 11.9, hematocrit is 35.7, and platelet count is 340. Sodium 137, potassium 3.9, chloride is 100, CO2 is 25, BUN of 15, creatinine 1.14, glucose is 113. Troponin is 0.191. He has EKG which is sinus rhythm. There is no acute change. On his chest x-ray, the heart size looked normal. There was some mild widening of the mediastinum but postop, no significant pleural effusion also by my reading. On EKG is sinus and no ST wave changes also by my reading. ASSESSMENT: This is a pleasant 68-year-old gentleman, who presented to the emergency room with dizziness and this is essentially five days postop from bypass surgery. His symptoms sound suspicious for possible volume depletion and orthostasis given that he was dizzy when he stood up and there was no significant findings on EKG lab work, CT angiogram, etc. He will be placed in observation. We will get orthostatic vital signs. No need to trend troponins as these are expected to be elevated postop. However, we will consult his machine repair person since he has had a recent bypass. We will give him gentle hydration with only a total of 500 of normal saline slowly over the next few hours and then reassess him in the a.m. 1. Hypertension. Again, his blood pressure appears to be relatively well controlled. We will reconcile and restart his home medications. 2. Diabetes mellitus. Again, we will reconcile and restart his home medicines as well as sliding scale insulin. Job ID: [id number]
[2019-10-31] MEDS: metFORMIN 500 MG TAB PO SCH (21:03)
[2019-10-31] MEDS: Metoprolol Tartrate 25 MG TAB PO SCH (21:03)
[2019-11-01 04:34] LABS: #Eosinphils 0.3 thou/uL (0.0-0.7); #Lymphocytes 1.1 thou/uL (1.20-3.40); #Neutrophils 5.6 thou/uL (1.40-6.50); %Basophils 0.4 % (0.0-1.0); %Eosinophils 3.9 % (0.0-10.0); %Lymphocytes 13.1 % (21.0-51.0); %Monocytes 12.6 % (0.0-10.0); %Neutrophils 70.1 % (42.0-75.0); Hemoglobin 11.1 g/dL (14.0-18.0); Mean Corpuscular HGB CONC 33.6 g/dL (32.0-36.0); Mean Corpuscular Hemoglobin 31.2 pg (27.0-31.0); Mean Corpuscular Volume 92.8 fL (78.0-98.0); Mean Platelet Volume 6.9 fL (7.4-10.4); Platelet Count 363 thou/uL (130-400); Red Blood Cell (RBC) Count 3.57 mill/uL (4.70-6.10)
[2019-11-01 05:25] LABS: Anion Gap 11 mmol/L (10-20); BUN (Urea Nitrogen) 11 mg/dL (8.4-25.7); Calc. Creatinine Clearance 128 mL/min (70-130); Calcium 8.5 mg/dL (7.8-10.44); Carbon Dioxide 27 mmol/L (23-31); Chloride 103 mmol/L (98-107); Estimated GFR-MDRD Greater than 90; Glucose 98 mg/dL (80-115); Potassium 3.8 mmol/L (3.5-5.1); Sodium 137 mmol/L (136-145)
--- NOTE | 2019-11-01 07:52 | PDOC.HOSPP ---
- Subjective Encounter Date: 11/01/19 Encounter Time: 07:00 Subjective: Mr. Galvan is being followed for dizziness 6 days post CABGx3. He was awake, comfortable, and pleasant this morning. He was in no acute distress and didn't report any dizziness after standing up from his bed twice. His Linda was present with him. - Objective Vital Signs & Weight: Vital Signs (12 hours) Temp Pulse Resp BP BP BP BP 11/01/19 07:00 98.5 F 73 18 131/63 11/01/19 03:42 99 F 71 18 109/62 120/64 135/73 10/31/19 23:29 98.6 F Pulse Ox 11/01/19 07:00 93 L 11/01/19 03:42 94 L 10/31/19 23:29 Weight Weight 252 lb 12.8 oz I&O: 10/31/19 11/01/19 11/02/19 06:59 06:59 06:59 Intake Total 1440 Output Total 1325 Balance 115 Result Diagrams: 11/01/19 04:05 11/01/19 04:05 Additional Labs: Accuchecks 11/01/19 10/31/19 06:02 20:41 POC Glucose 113 H 124 H EKG Reviewed by me: Yes (sinus rhythm) Hospitalist ROS - Review of Systems Constitutional: denies: fever Eyes: denies: pain Respiratory: denies: cough, shortness of breath Cardiovascular: denies: chest pain, palpitations, orthopnea, edema, light headedness Gastrointestinal: denies: nausea, vomiting, abdominal pain, constipation Musculoskeletal: denies: neck pain - Medication Medications: Active Medications Generic Name Dose Route Start Last Admin Trade Name Freq PRN Reason Stop Dose Admin Metformin HCl 500 mg 10/31/19 21:00 10/31/19 21:03 Glucophage PO 500 mg BID CHASIDY Administration Metoprolol Tartrate 25 mg 10/31/19 21:00 10/31/19 21:03 Lopressor PO 25 mg BID CHASIDY Administration - Exam General Appearance: awake alert Eye: PERRL, anicteric sclera ENT: normocephalic atraumatic Neck: supple, no JVD, no lymphadenopathy Heart: RRR, no gallops, no rubs, normal peripheral pulses, murmur present (1+ mitral regurgitation radiating to the axilla) Respiratory: CTAB, no wheezes, no rales, no ronchi Gastrointestinal: soft, non-tender, non-distended Extremities: no cyanosis, no edema Psychiatric: normal affect Hosp A/P (1) Dizziness Code(s): R42 - DIZZINESS AND GIDDINESS Status: Acute (2) Chest pain Code(s): R07.9 - CHEST PAIN, UNSPECIFIED Status: Acute Qualifiers: Chest pain type: other chest pain Qualified Code(s): R07.89 - Other chest pain; R07.8 - Other chest pain (3) CAD (coronary artery disease) Code(s): I25.10 - ATHSCL HEART DISEASE OF [place] CORONARY ARTERY W/O ANG PCTRS Status: Chronic (4) DM type 2 (diabetes mellitus, type 2) Status: Chronic (5) Hypertension Code(s): I10 - ESSENTIAL (PRIMARY) HYPERTENSION Status: Chronic Qualifiers: Hypertension type: essential hypertension Qualified Code(s): I10 - Essential (primary) hypertension - Plan * Dizziness - the patient is no longer experiencing dizziness upon standing up from a sitting position. His BP was measured while he was supine, sitting, and standing and it responded appropriately. * Chest pain - related to the CABG and is described as a soreness upon movement. Will better with time as he heals from the procedure. * * Patient seen and examined and discussed with Mariajose Milner MS-2. I agree with her assessment. Mr. Galvan is post CABG, and he does not have any complaints this AM. He denies dizziness today when he got up. His exam is unremarkable. He did not have orthostasis. Await recommendations for Dr. Reynolds. Likely home today
[2019-11-01] MEDS: metFORMIN 500 MG TAB PO SCH (08:17)
[2019-11-01] MEDS: Metoprolol Tartrate 25 MG TAB PO SCH (08:27)
[2019-11-01] MEDS ORDERED: OLMESARTAN PO SCH (09:00)
[2019-11-01] MEDS ORDERED: [UNRECOGNIZED DRUG - OTHER] PO SCH (09:00)
[2019-11-01] MEDS ORDERED: Enoxaparin Sodium 40 MG/0.4 ML SYRINGE SC SCH (09:00)
[2019-11-01] MEDS ORDERED: Aspirin 81 mg Enteric Coated Tablet PO SCH (09:00)
[2019-11-01] MEDS ORDERED: Hydrochlorothiazide 25 MG TAB PO SCH (09:00)
[2019-11-01] MEDS ORDERED: Losartan 25 MG TAB PO SCH (09:00)
[2019-11-01] MEDS ORDERED: Atorvastatin Calcium 20 MG TAB PO SCH (09:00)
[2019-11-01] MEDS ORDERED: HCTHIAZID PO SCH (09:00)
[2019-11-01] MEDS ORDERED: Amlodipine 5 MG TAB PO SCH (09:00)
[2019-11-01] MEDS ORDERED: AMLODIPIN PO SCH (09:00)
--- NOTE | 2019-11-01 14:13 | CT ---
CTA OF THE HEAD WITH AND WITHOUT IV CONTRAST AND 3-D REFORMATTED IMAGING. CTA OF THE NECK WITH IV CONTRAST AND 3-D REFORMATTED IMAGING. INDICATION: 68-year-old male with dizziness and posterior neck pain COMPARISON: MR the brain dated October 24, [address] the brain dated May 30, 2009. FINDINGS: CTA OF THE HEAD WITH AND WITHOUT CONTRAST: NONCONTRAST CT OF BRAIN: Hemorrhage: None Ischemia/Infarction: None. Midline Shift: None. Hydrocephalus: None. Skull and Extracranial Soft tissues: Normal. CTA OF THE BRAIN: Right ICA: Patent. Right MCA: Patent. Right JEWELS: Patent. ACOM: Patent. Left ICA: Patent. Left MCA: Patent. Left JEWELS: Patent. PCOMs: Patent. Vertebral arteries: The left vertebral artery is diminutive. The right vertebral artery is patent. Basilar Artery: Patent. deputy chief counsel: Patent. Incidentals: None. CTA OF THE NECK WITH CONTRAST: Right CCA: Patent. Right ICA: There is mild narrowing of the origin of the right internal carotid artery by approximate ly 25%. The remaining cervical course is widely patent. Right Subclavian: Patent. Right Vertebral Artery: There is mild irregularity involving the proximal aspect of the right verteb ral artery; however, the remaining cervical course is widely patent. Left CCA: Patent. Left ICA: There is mild luminal caliber narrowing involving the proximal left ICA as well as the mid to distal left ICA with approximately 25-30% luminal caliber narrowing. The remaining course of the left ICA within the neck is patent. Left Subclavian: Patent. Left Vertebral Artery: The left vertebral artery is occluded within the majority of its cervical cou rse. There is some reconstitution of flow at approximately the left C2 transverse foramen that continues through its intracranial course. Very minimal antegrade flow is seen at the origin of the l eft vertebral artery. Aerodigestive tract: Clear. Parotids/Submandibular/Thyroid glands: Normal. Lymph nodes: No pathologically enlarged lymph nodes. Lung Apices: Clear. Bones: No acute osseous abnormality. Incidentals: There is soft tissue gas involving the right chest wall and right base of neck. IMPRESSION: 1. Chronic left vertebral artery occlusion. 2. Soft tissue gas within the right aspect of the chest wall and right base of neck may be postsurgic al and related to the patient's recent coronary artery bypass 3. Mild luminal caliber narrowing of the cervical ICAs bilaterally. 4. No acute intracranial abnormality. Transcribed Date/Time: 11/01/2019 2:13 PM
[2019-11-01 16:01] VITALS: BP 128/61; TEMP 98.9
--- NOTE | 2019-11-01 20:22 | PRG ---
DATE OF SERVICE: SUBJECTIVE: Mr. Galvan was readmitted yesterday after an episode of extreme weakness, lightheadedness, and dizziness. He did not have syncope. He states this was a totally different feeling than what he had that initially brought him into the hospital prior to bypass surgery. Looking back through the chart prior to his discharge, he was on metoprolol 25 b.i.d. and then was discharged, that was continued and Tribenzor 20-5-12.5 mg daily was restarted. He denies any chest discomfort or shortness of breath. PHYSICAL EXAMINATION: VITAL SIGNS: Blood pressure 120/60, pulse 66 (amlodipine has been discontinued this morning). CHEST: Clear. CARDIAC: S1 and S2 normal without any S3, S4, or murmurs. ABDOMEN: Normal bowel sounds without tenderness or organomegaly. EXTREMITIES: Revealed no clubbing, cyanosis, or edema. LABORATORY DATA: EKG revealed normal sinus rhythm and was normal. Cardiac enzymes are unremarkable. His blood pressures have been monitored closely. IMPRESSION: 1. Weakness, lightheadedness, dizziness, probably due to hypotension with restarting the Tribenzor. This morning, I discontinued the amlodipine, but the nurse still gave it. 2. Status post recent CABG. 3. Hypertension. 4. Hypercholesterolemia. 5. Diabetes. PLAN: The patient will be switched from Tribenzor to olmesartan/ hydrochlorothiazide 20/12.5 daily and the amlodipine will be discontinued. He will continue to be followed as an outpatient. I feel he may be discharged. Job ID: [id number] [id number]
--- NOTE | 2019-11-02 01:31 | DIS ---
DATE OF ADMISSION: 10/31/2019 DATE OF DISCHARGE: 11/01/2019 PRIMARY CARE PHYSICIAN: Chandler Hand MD DISCHARGE DISPOSITION: Home. DISCHARGE DIAGNOSES: 1. Dizziness. 2. Coronary artery disease, status post recent bypass. 3. Hypertension. 4. Diabetes mellitus, type 2. DISCHARGE MEDICATIONS: Include: 1. Tramadol 50 mg daily. 2. The patient was taken off Tribenzor and placed on olmesartan-hydrochlorothiazide 20/12.5, one tablet daily. 3. Lopressor 25 mg twice daily. 4. Metformin 500 mg twice a day. 5. Lipitor 20 mg daily. 6. Aspirin 81 mg daily. IMAGING DONE DURING HOSPITAL STAY: The patient had a CT angiogram of the [place] [facility] [place], which was negative for any significant large vessel disease. CODE STATUS: Full code. ALLERGIES: NO KNOWN DRUG ALLERGIES. HOSPITAL COURSE: Mr. Galvan is a pleasant 68-year-old gentleman, who was admitted to the hospital after feeling sensation of dizziness when he would stand up. He is approximately 5 days post bypass surgery when he presented to the emergency room and given this history, it was felt best to place the patient on observation. It was felt that he may have been a bit volume depleted and so, he was given 500 of normal saline back. The following day, he was symptomatically improved. His sporting goods sales manager was consulted and he made the recommendation to take the patient off Tribenzor and place him on olmesartan hydrochlorothiazide, removing the amlodipine portion of the medication. The patient was stable at the time of discharge and he was instructed to follow up with his primary care physician in 1 week and also with Dr. Reynolds as instructed. Job ID: [id number]
--- NOTE | 2019-11-05 16:56 | EKG ---
Test Reason : Blood Pressure : / mmHG Vent. Rate : 075 BPM Atrial Rate : 075 BPM P-R Int : 178 ms QRS Dur : 098 ms QT Int : 376 ms P-R-T Axes : 039 012 068 degrees QTc Int : 419 ms Normal sinus rhythm Normal ECG Confirmed by CANDI BANUELOS M.D. ([id number]), art editor FLORES FRITZ ([id number]) on 11/05/2019 4:56:15 PM Referred By: Confirmed By:CANDI BANUELOS M.D.
== END 2019-11-01 17:18 | disposition home or self-care (01) ==
LOC: ERS 06:01 → 2NO 11:57
PROVIDERS: ADMIT Internal Medicine; ATTEND Internal Medicine
DX: R42 Dizziness and giddiness (principal); R53.1 Weakness; I25.10 Atherosclerotic heart disease of native coronary artery without angina pectoris; I10 Essential (primary) hypertension; E11.9 Type 2 diabetes mellitus without complications; E78.00 Pure hypercholesterolemia, unspecified; Z79.82 Long term (current) use of aspirin; Z79.84 Long term (current) use of oral hypoglycemic drugs; Z79.899 Other long term (current) drug therapy; Z95.1 Presence of aortocoronary bypass graft; Z95.5 Presence of coronary angioplasty implant and graft; Z87.891 Personal history of nicotine dependence
CPT/HCPCS: 36415; 36416; 70496; 70498; 71045; 80048; 80053; 82550; 82553; 84484; 85025; 93005; 96372; G0378; J1650; J2270; Q9967

== ENCOUNTER 2019-11-09 11:14 | Observation (INO) | payer BC, MEDICARE ==
[2019-11-09] MEDS ORDERED: DOPamine 400 MG/D5W 250 ML 0 ML ONE (11:46)
[2019-11-09] MEDS ORDERED: Norepinephrine 4 MG/4 ML VIAL ONE (11:46)
[2019-11-09] MEDS ORDERED: Norepinephrine 8 MG/0.9% NS 0 ML ONE (11:49)
[2019-11-09 11:53] LABS: #Eosinphils 0.2 thou/uL (0.0-0.7); #Lymphocytes 1.9 thou/uL (1.20-3.40); #Neutrophils 7.7 thou/uL (1.40-6.50); %Basophils 0.4 % (0.0-1.0); %Eosinophils 1.9 % (0.0-10.0); %Lymphocytes 17.8 % (21.0-51.0); %Neutrophils 70.9 % (42.0-75.0); Hemoglobin 13.3 g/dL (14.0-18.0); Mean Corpuscular HGB CONC 32.8 g/dL (32.0-36.0); Mean Corpuscular Hemoglobin 29.9 pg (27.0-31.0); Mean Platelet Volume 6.2 fL (7.4-10.4); Platelet Count 844 thou/uL (130-400); RBC Distribution Width 11.7 % (11.5-14.5); Red Blood Cell (RBC) Count 4.44 mill/uL (4.70-6.10); White Blood Cell (WBC) Count 10.8 thou/uL (4.8-10.8)
--- NOTE | 2019-11-09 12:20 | RAD ---
CHEST 1 VIEW: Date: 11/09/2019 INDICATION: History of heart rehab post CABG and syncope. COMPARISON: Prior exam dated 10/31/2019. FINDINGS: There is stable post CABG change and mild cardiomegaly. Pulmonary vasculature is within normal limits . Lungs are clear. No pleural effusion or pneumothorax evident. No acute osseous abnormality is evide nt. IMPRESSION: Stable cardiomegaly. POS: [facility]
[2019-11-09 12:23] LABS: ALT (SGPT) 71 U/L (8-55); AST (SGOT) 32 U/L (5-34); Alkaline Phosphatase 118 U/L (40-110); Anion Gap 17 mmol/L (10-20); BUN (Urea Nitrogen) 17 mg/dL (8.4-25.7); Bilirubin, Total 0.9 mg/dL (0.2-1.2); CK (CPK) 66 U/L (30-200); Calc. Creatinine Clearance 0 mL/min (70-130); Calcium 9.7 mg/dL (7.8-10.44); Carbon Dioxide 23 mmol/L (23-31); Chloride 98 mmol/L (98-107); Estimated GFR-MDRD 38; Globulin 3.3 g/dL (2.4-3.5); Glucose 136 mg/dL (80-115); Lipase 59 U/L (8-78); Potassium 3.6 mmol/L (3.5-5.1); Protein, Total 7.3 g/dL (5.8-8.1); Sodium 134 mmol/L (136-145)
--- NOTE | 2019-11-09 12:26 | RAD ---
XR Chest 1 View Portable HISTORY: Central line placement COMPARISON: Earlier exam of11:10 AM FINDINGS: There is been internal placement of a left-sided tube and central line with tip in the projection of the SVC. Changes of median sternotomy are again seen. The heart size is normal. The lungs are well expanded without focal areas of consolidation, pneumothorax or pleural effusions. IMPRESSION: No radiographic evidence of acute cardiopulmonary process.
[2019-11-09 12:48] LABS: CKMB 0.6 ng/mL (0-6.6)
[2019-11-09 12:48] LABS: Acetaminophen Less than 6.0 mcg/mL (10.0-30.0); Alcohol Less than 10 mg/dL (Less than 10); Salicylate Less than 8.0 mg/dL (15.0-30.0)
[2019-11-09] MEDS ORDERED: Dexamethasone 4 mg/ml Vial ONE (13:12)
--- NOTE | 2019-11-09 14:40 | CT ---
Exam: CT angiogram of the chest HISTORY: Status post CABG on 10/27/2019. Patient was performing rehabilitation on treadmill and became syncopal. Hypotension. COMPARISON: None TECHNIQUE: CT angiogram of the chest is performed in the axial plane. Three-dimensional reformatted i mages are submitted for interpretation FINDINGS: Mediastinum: There is mild fluid and stranding of the mediastinal fat suggesting iatrogenic change fr om recent CABG. HEART: Normal heart size. There is a small amount of pericardial fluid. There is evidence of at least a two-vessel CABG. There is abnormal hypoattenuation along the bypass in the expected region of the left anterior descending artery. This abnormal density has attenuation coefficient of 20 Hounsfie ld units and may represent postoperative changes. Significance is uncertain. Aorta: No aneurysm or dissection Upper solid abdominal viscera: No abnormality enhancement. Trachea and central bronchi: Patent Pleural spaces: No effusion Lung parenchyma: Scar and atelectasis in the dependent portion of the left and right lower lobe. Pneumothorax: None Osseous structures: No lytic or blastic lesions. Sternotomy changes are noted. Pulmonary arteries: Adequate contrast opacification pulmonary arterial system to the level of segment al arteries. No filling defect to suggest pulmonary embolism IMPRESSION: 1. No evidence of pulmonary artery embolism to the level of segmental arteries 2. Straightening of the anterior mediastinal fat. Pericardial fluid which is presumed to be iatrogeni c from the patient has undergone recent CABG. 3. Abnormal hypodensity along the left heart border adjacent to the LAD bypass. Correlate for signifi cance. Results study discussed with Dr. Pierre 11/09/2019 at 2:34 PM Code CR
[2019-11-09] MEDS ORDERED: Iopamidol-370 76% 500 ML 1 ML ONE (16:31)
[2019-11-09] MEDS ORDERED: Sodium Chloride 0.9% 1,000 ML IV SCH (16:47)
[2019-11-09] MEDS ORDERED: Ondansetron ODT 4 MG TAB SL PRN (16:47)
[2019-11-09] MEDS ORDERED: Ondansetron PF 4 MG/2 ML Vial IVP PRN (16:47)
[2019-11-09 17:02] LABS: Troponin I 0.068 ng/mL (< 0.028)
[2019-11-09] MEDS ORDERED: Acetaminophen 325 MG TAB PO PRN (17:02)
[2019-11-09] MEDS ORDERED: Calcium Carbonate 500 MG ChewTAB PO PRN (17:02)
[2019-11-09 17:03] VITALS: BMI 35.9
[2019-11-09] MEDS ORDERED: HumaLOG 300 UNITS/3 ML VIAL SC PRN ×2 (17:08)
[2019-11-09] MEDS ORDERED: Dextrose 50% Abboject 50 ML SYRINGE SLOW IVP PRN (17:08)
[2019-11-09] MEDS ORDERED: Dextrose 5% in Water 1,000 ML IV PRN (17:08)
[2019-11-09 17:56] LABS: Bilirubin Negative (Negative); Blood, Urine Negative (Negative); Glucose, Urine (Dipstick) Negative (Negative); Ketone, Urine 15 mg/dL (Negative); Leukocyte Negative (Negative); Nitrite Negative (Negative); Protein, Urine (Dipstick) Negative (Neg-Trace); Urobilinogen 0.2 mg/dL (Less than 2)
[2019-11-09 17:57] LABS: Clarity Clear (Clear)
[2019-11-09 18:15] LABS: Bacteria/HPF Rare-Few HPF (None Seen); RBC/HPF 0-3 HPF (0-3); Squamous Epithelial 0-3 HPF (0-3); WBC/HPF 0-3 HPF (0-3)
--- NOTE | 2019-11-09 18:18 | CON ---
DATE OF CONSULTATION: HISTORY OF PRESENT ILLNESS: This is a 68-year-old gentleman, discharged from the hospital 1 week ago after coronary artery bypass grafting x3. He was doing well, walking around outside home every day and was at rehab today and had finished two 6-minute walks when he became unresponsive and was hypotensive. He was seen in the ER where his hypotension persisted, but eventually responded to IV fluids. He had no arrhythmias. His D-dimer was slightly elevated, prompting a CTA of the chest, which I have reviewed, showing no evidence of pulmonary embolus. No significant pericardial fluid. Contrast in all 3 of his bypass grafts and no significant pleural effusions and no signs of mediastinitis. His laboratory values otherwise show a white count of 10,800, and notably does have a platelet count of 844,000, which is significantly higher than normal for him. His discharge medications include olmesartan and hydrochlorothiazide as well as metoprolol and aspirin. He was on amlodipine prior to his surgery and this was not resumed and the patient's blood pressure at home was running about 160 per the patient. The creatinine was elevated slightly higher than normal at 2.1 on admission and that was prior to the contrast CT study. PHYSICAL EXAMINATION: GENERAL: On examination, he is awake, alert, and cooperative, in no distress. SKIN: Chest incision is healing nicely. His sternum appears stable and there is no fluctuance or tenderness to palpation. His leg incisions are healing nicely and he has no significant edema. ASSESSMENT AND PLAN: At this time, it is unclear what caused his hypotensive episode. He is to be monitored overnight and I have no further recommendations at this time other than to hold his blood pressure medications. Job ID: [id number]
--- NOTE | 2019-11-09 18:31 | HP ---
PRIMARY CARE PHYSICIAN: Chandler Hand MD. LASER OPERATOR: Ketan Reynolds MD CARDIOVASCULAR SURGEON: Travis Watson MD CHIEF COMPLAINT: Syncope. HISTORY OF PRESENT ILLNESS: The patient is a 68-year-old male with a past medical history significant for 3-vessel bypass in October 2019, CAD with one stent, diabetes 2, non-insulin dependent, hypertension, who presents to the ER for the above complaint. The patient reports that he was attending cardiac rehab, s/p CABG x 3, when he was exerting himself on a stationary bike, doing leg exercises. He performed 2 different sets at 6 minutes each with no distress, no issues. He then drank some cold water and stood up to go over and work on another exercise, utilizing his upper extremities. The next thing he remembers is waking up with EMS standing over him, while he was lying on the floor. EMS reported SBP was labile, between 70s and 50s. He was given 1L NS and his blood pressure improved. He denies any chest pain, heart palpitations, or swelling in his lower extremities. He denies any abdominal pain, vomiting, diarrhea, or blood in the stools. He denies any dysuria or urinary frequency or urgency. He denies any recent fever or chills. Denies any shortness of breath, wheezing, or difficulty breathing. The patient having a similar episode in which he was admitted to the hospital on 10/30 and discharged on 10/31, where he felt lightheaded and almost passed out. He was thought to be mildly dehydrated. After getting IV fluid resuscitation, his symptoms improved. His neuro intensivist physician recommended changing his home medications, stopping his Tribenzor and starting him on an ARB with hydrochlorothiazide. The patient was discharged home. Since discharge, the patient reports that he occasionally feels lightheaded, particularly when he stands up from sitting down. He feels like he is going to pass out from [id number]. In the ER, the patient's vital signs were stable. He had normal blood pressure, normal pulse, normal respirations. He was afebrile. His EKG was sinus turner with a heart rate of 55, no ST elevations. Cardiac ultrasound was performed at bedside and showed it was negative for any pericardial effusion. Chest x-ray was negative for any acute process. No cardiomegaly and no pneumothorax. The patient's D-dimer was elevated at 6.73, so a CTA was performed of his chest that was negative for PE. Initial troponin of 0.084, CK-MB of 0.6. BNP of 62.9. His lactic acid was 2.0. His WBCs were 10.8, his hemoglobin was 13.3, hematocrit was 40.4. The patient was given 2 L of normal saline with improvement of symptoms. PAST MEDICAL HISTORY: 1. Coronary artery disease with 1 stent. 2. Diabetes type 2, non-insulin dependent. 3. Hypertension. 4. Prostate cancer. PAST SURGICAL HISTORY: 1. CABG x3 in October 2019. 2. Prostatectomy. 3. Appendectomy. SOCIAL HISTORY: The patient lives in [place] with his family at home. He has no history of smoking, alcohol, or illicit drug use. 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 FAMILY HISTORY: Significant for cardiac disease and significant for diabetes. ALLERGIES: NO KNOWN DRUG ALLERGIES. HOME MEDICATIONS: 1. Aspirin 81 mg p.o. daily. 2. Lipitor 20 mg p.o. daily. 3. Metformin 500 mg p.o. b.i.d. 4. Lopressor 25 mg b.i.d. 5. Olmesartan/hydrochlorothiazide 20/12.5 one tablet p.o. daily. 6. Tramadol 50 mg p.o. daily. REVIEW OF SYSTEMS: All review of systems are negative unless otherwise stated in the HPI. PHYSICAL EXAMINATION: VITAL SIGNS: Temperature 98.2 oral, blood pressure 124/73, heart rate 78, respirations 18, 100% on 2 L nasal cannula. CONSTITUTIONAL: The patient is alert and oriented to person, place, and time. He is comfortable and nontoxic in appearance. EYES: PERRLA. Extraocular muscles intact. Sclerae nonicteric. ENT: Tympanic membranes intact bilaterally. EACs clear bilaterally. Bilateral nares are patent. Oropharynx is clear. Uvula midline. Moist mucous membranes. No oral lesions. NECK: Soft. Trachea midline. No JVD. No cervical adenopathy. Full range of motion. RESPIRATORY/CHEST: Respirations are even and unlabored. Clear to auscultation. No rhonchi, wheezes, or rales. CARDIOVASCULAR: S1, S2 appreciated. No murmurs, rubs, or gallops. ABDOMEN: Soft, nontender. Active bowel sounds. No guarding. No rigidity. No rebound tenderness. No abdominal bruit auscultated. BACK: No central spinous tenderness. No CVA tenderness. Full range of motion. EXTREMITIES: Upper extremities; full range of motion. Strength intact. Sensation intact. Palpable radial pulses. Lower extremities; full range of motion. Strength normal. Sensation intact. Palpable pedal pulses. No swelling. NEUROLOGIC: The patient is alert and oriented to person, place, and time. No focal deficits. Normal gait. PSYCHIATRIC: Normal affect. The patient is alert and oriented to person, place , and time. LABS AND DIAGNOSTICS: EKG; sinus turner, heart rate 55, no ST elevation. Cardiac ultrasound negative for any pericardial effusion. Chest x-ray negative for cardiomegaly or pneumothorax. Troponin 0.084, CK-MB 0.6. BNP 62.9. TSH 1.44. D-dimer 6.73. CT of chest negative for any PE. Sodium 134, potassium 3.6, chloride 98, CO2 of 23, BUN 17, creatinine 2.11, glucose 136. Total bilirubin 0.9, AST 32, ALT 71, alkaline phosphatase 118. Ammonia 22. Albumin 4.0. Lactic acid 2.0. WBCs 10.8, hemoglobin 13.3, hematocrit 40.4, platelets were 844. Plasma drug screen was unremarkable. IMPRESSION AND PLAN: 1. Syncope. We will admit the patient to telemetry for observation status. Expected length of stay, less than 2 midnights. The patient presented for low blood pressure with systolic blood pressure in the 70s and 50s. He was given 2 L of normal saline and he is currently asymptomatic with a stable blood pressure, stable respirations, stable heart rate. We will continue to trend troponins. We will continue daily aspirin. We will check a Mag level. Consult Cardiovascular Surgery and Cardiology. Consult cardiac rehab and perform orthostatic vital signs. We will initiate fall precautions. We will obtain echocardiogram of the heart. We will obtain another baseline EKG in the a.m. Blood cultures are pending, and we will get a UA. 2. Hypotension, currently resolved. EMS reported systolic blood pressure in the 50s and the 70s. After 2 L of IV fluid resuscitation, the blood pressure is now stable. The patient recently discharged from the hospital for similar symptoms and had a medication change in which his Tribenzor was stopped and he was placed on an ARB/hydrochlorothiazide. The patient still reports some intermittent episodes of dizziness after standing up. We will perform orthostatic vital signs in the a.m. Continue to monitor blood pressure. 3. GOLDEN, presented with creatinine of 2.11, baseline appears to be 0.91, mild IVF hydration and recheck level in am. Will hold ARB and HCTZ for now. 4. Status post 3-vessel coronary artery bypass graft. The patient underwent 3-vessel bypass on 10/[address] Watson. 5. Coronary artery disease x1 stent. We will continue the patient's aspirin. 6. Diabetes 2. The patient is on metformin 500 mg p.o. b.i.d. We will hold metformin for now. We will start mild insulin sliding scale and Accu-Cheks a.c. and at bedtime. 7. Hypertension. We will restart the patient's home medications slowly as blood pressure readings allow. 8. Sequential compression devices for deep vein thrombosis prophylaxis. Pepcid for gastrointestinal prophylaxis. The patient is a full code. MOUNA is his , Linda Galvan, number is [phone]. 9. Discussed the case with Dr. Hawley. Job ID: [id number] MTDD
[2019-11-09 20:31] LABS: Troponin I 0.087 ng/mL (< 0.028)
[2019-11-09] MEDS ORDERED: Aspirin 325 MG TAB PO SCH (21:00)
[2019-11-10 05:12] LABS: #Basophils 0.1 thou/uL (0.0-0.2); #Monocytes 1.1 thou/uL (0.11-0.59); #Neutrophils 9.8 thou/uL (1.40-6.50); %Basophils 0.5 % (0.0-1.0); %Eosinophils 0.2 % (0.0-10.0); %Lymphocytes 8.1 % (21.0-51.0); %Monocytes 9.2 % (0.0-10.0); Mean Corpuscular HGB CONC 33.2 g/dL (32.0-36.0); Mean Corpuscular Hemoglobin 29.9 pg (27.0-31.0); Mean Platelet Volume 6.5 fL (7.4-10.4); Platelet Count 649 thou/uL (130-400); RBC Distribution Width 11.5 % (11.5-14.5); Red Blood Cell (RBC) Count 3.66 mill/uL (4.70-6.10); White Blood Cell (WBC) Count 11.9 thou/uL (4.8-10.8)
[2019-11-10 05:26] LABS: Anion Gap 12 mmol/L (10-20); BUN (Urea Nitrogen) 14 mg/dL (8.4-25.7); Calc. Creatinine Clearance 102 mL/min (70-130); Calcium 8.5 mg/dL (7.8-10.44); Carbon Dioxide 23 mmol/L (23-31); Chloride 104 mmol/L (98-107); Estimated GFR-MDRD 84; Glucose 110 mg/dL (80-115); Sodium 135 mmol/L (136-145)
--- NOTE | 2019-11-10 08:36 | PDOC.HOSPP ---
- Subjective Encounter Date: 11/10/19 Encounter Time: 10:30 Subjective: Patient without further dizziness/lightheadedness/ or syncope. Feels fine with standing and ambulating. No chest pain. - Objective Vital Signs & Weight: Vital Signs (12 hours) Temp Pulse Resp BP BP Pulse Ox 11/10/19 07:28 97.5 F L 72 14 137/73 99 11/10/19 03:35 98.5 F 67 20 131/69 99 11/10/19 00:10 72 20 138/69 Weight Weight 236 lb 4.8 oz I&O: 11/09/19 11/10/19 11/11/19 06:59 06:59 06:59 Intake Total 1790 Output Total 1450 Balance 340 Result Diagrams: 11/10/19 04:20 11/10/19 04:20 Additional Labs: Accuchecks 11/09/19 11/09/19 20:37 17:30 POC Glucose 177 H 126 H Hospitalist ROS - Review of Systems Constitutional: denies: fever, chills Respiratory: denies: cough, shortness of breath Cardiovascular: denies: chest pain, palpitations, orthopnea Gastrointestinal: denies: nausea, vomiting, abdominal pain - Exam General Appearance: NAD, awake alert ENT: moist mucosa Heart: RRR, no murmur, no gallops, no rubs Respiratory: CTAB, no wheezes, no rales, no ronchi Respiratory - other findings: sternotomy healing well Gastrointestinal: soft, non-tender, non-distended, normal bowel sounds Musculoskeletal: normal tone, normal strength Psychiatric: normal affect, normal behavior, A&O x 3 Hosp A/P (1) Syncope and collapse Code(s): R55 - SYNCOPE AND COLLAPSE Status: Acute (2) Hypotension Status: Resolved (3) CAD (coronary artery disease) Code(s): I25.10 - ATHSCL HEART DISEASE OF [place] CORONARY ARTERY W/O ANG PCTRS Status: Chronic (4) S/P CABG x 3 Code(s): Z95.1 - PRESENCE OF AORTOCORONARY BYPASS GRAFT Status: Acute (5) Acute kidney injury Code(s): N17.9 - ACUTE KIDNEY FAILURE, UNSPECIFIED Status: Resolved Plan: resolved with fluids overnight (6) DM type 2 (diabetes mellitus, type 2) Status: Chronic (7) Hypertension Code(s): I10 - ESSENTIAL (PRIMARY) HYPERTENSION Status: Chronic Qualifiers: Hypertension type: essential hypertension Qualified Code(s): I10 - Essential (primary) hypertension (8) Obesity Code(s): E66.9 - OBESITY, UNSPECIFIED Status: Chronic - Plan BP normal this morning and no orthostatic hypotension on the floor. Can resume medications as directed by cardiology GOLDEN resolved with fluids disposition as per cardiology and CV surgery
[2019-11-10] MEDS ORDERED: Famotidine 20 MG TAB PO SCH ×2 (09:00→21:00)
--- NOTE | 2019-11-10 16:15 | CON ---
DATE OF CONSULTATION: HISTORY OF PRESENT ILLNESS: Toni Galvan is a 68-year-old black male who is admitted after hypotensive episode at cardiac rehab. In 2012, he was feeling weak and dizzy and was taken to [facility] and then transferred to the hospital. He underwent cardiac catheterization and had a stent placed in a 90% blocked artery. He states there were blockages in other arteries, but no other stents were placed. He also was on simvastatin in the past; however, he states his doctor took him off this, and when he was seen initially in 10/2019, his LDL was 154. Five days prior to his admission in 10/2019, he had episodes while working in a hot environment where he become extremely lightheaded and dizzy and has some mild chest pressure associated with that. He had multiple episodes that lasted approximately 30 minutes. He came to the hospital for further evaluation. He also had an episode of bradycardia with heart rates in the 40s with lightheadedness and dizziness. With this history, it was recommended he undergo catheterization, which was performed on 10/23/2019. This revealed 70% mid LAD, 70% first diagonal, 80% mid circumflex followed by 70% mid circumflex and a 50% stenosis in the 3rd obtuse marginal. There was a proximal RCA stenosis of 90% and the mid RCA was totally occluded and filled retrograde from the distal LAD. There was a stent in the 3rd obtuse marginal that was patent. Ejection fraction was 50-55%.. He then underwent CABG x3 by Dr. Watson with NDIAYE to the LAD and saphenous vein graft to the distal obtuse marginal and the right posterolateral. He then was readmitted the day after discharge with weakness, lightheadedness, and dizziness, but no syncope. He stated that this was a totally different feeling and what initially brought him to the hospital prior to bypass surgery. At the time of discharge, he was on metoprolol 25 b.i.d. and Tribenzor 20//12.5 was restarted. The amlodipine portion of Tribenzor was discontinued. He was discharged on olmesartan/hydrochlorothiazide 20/12.5 daily. Mr. Galvan has been doing very well; however, over the last several nights, he states he does become somewhat diaphoretic at night. He denies any nausea, vomiting, or diarrhea. Yesterday afternoon, he was at cardiac rehab, exercising and became very dizzy, lightheaded and apparently had a syncopal episode. He does state that he was on a monitor at that time and no bradycardia was reported. He was sent to the emergency room and blood pressure there was 58/33. He was given intravenous fluids with normalization of his blood pressure. He denies any chest discomfort during any of this. Also, apparently, no significant bradycardia or arrhythmia was ever documented at rehab or in the ER, even though he was monitored during this episode. PAST MEDICAL HISTORY: 1. Hypertension. 2. Diabetes. 3. Hypercholesterolemia. 4. Prostate cancer. PAST SURGICAL HISTORY: 1. CABG. 2. Prostatectomy. 3. Appendectomy. SOCIAL HISTORY: He does not smoke or drink. FAMILY HISTORY: Negative for coronary artery disease. REVIEW OF SYSTEMS: A 10-point review of systems is otherwise unremarkable. PHYSICAL EXAMINATION: VITAL SIGNS: Blood pressure 112/71 and pulse of 84. HEENT: PERRL. NECK: Supple. CHEST: Clear. CARDIAC: S1 and S2 are normal without any S3, S4, or murmurs. ABDOMEN: Normal bowel sounds without tenderness or organomegaly. EXTREMITIES: No clubbing, cyanosis, or edema. NEUROLOGIC: Grossly intact. SKIN: Warm and dry. LABORATORY DATA: EKG reveals normal sinus rhythm with anterolateral T-wave changes, which are new from postoperatively. Sodium 135, potassium 4.0, chloride 104, carbon dioxide 23, BUN 14, and creatinine 1.07. It is of note that his admission creatinine was 2.11. Troponin-I 0.087. Hemoglobin 11.0, hematocrit 33.0, white count 11,900, and platelets 649,000. IMPRESSION: 1. Syncopal episode secondary to hypotension. Amlodipine has already been discontinued. Other blood pressure medicines need to be reduced or discontinued. 2. Status post coronary artery bypass graft x3 in 10/2019. 3. Normal left ventricular function with current ejection fraction of 60% to 65% . 4. New anterolateral T-wave changes, probably induced by hypotension. EKG will be repeated. 5. Hypotension. 6. Diabetes. 7. Hypercholesterolemia. PLAN: All of his blood pressure medicines have been held at the present time. With his elevated creatinine at the time of admission, hydrochlorothiazide needs to be discontinued and probably also the olmesartan needs to be discontinued or dosage reduced. With coronary artery disease, I would continue the low-dose metoprolol. I would observe one more night, and if his blood pressure remained stable, I feel he can be discharged, probably just on metoprolol alone. Job ID: [id number] MTDD
[2019-11-10] MEDS: Metoprolol Tartrate 25 MG TAB PO SCH (20:00)
[2019-11-11] MEDS ORDERED: cloNIDine 0.1 MG TAB PO PRN (08:27)
[2019-11-11] MEDS: Metoprolol Tartrate 25 MG TAB PO SCH (08:45)
[2019-11-11 11:00] VITALS: BP 136/72; TEMP 99.1
--- NOTE | 2019-11-11 16:55 | DIS ---
DATE OF ADMISSION: 11/09/2019 DATE OF DISCHARGE: 11/11/2019 DISCHARGE DISPOSITION: Home. FOLLOWUP: Follow up with primary care physician, Dr. Chandler Hand in 1 week. Follow up with Cardiology in 1 week. Patient was seen and examined on the day of discharge. Denies any new complaints. No chest pain, shortness of breath, palpitations. DISCHARGE MEDICATION: Patient was advised to discontinue diuretics and angiotensin receptor drake. He was advised to monitor blood pressure on a daily basis. 24-hour supervision with fall precaution was emphasized. BRIEF HOSPITAL COURSE: The patient is a 68-year-old male with recent coronary artery bypass, presented to the emergency room after a syncopal episode. His blood pressure was in systolic 70s and 50s per EMS. He received IV fluid bolus after which his blood pressure improved. The patient was monitored on the telemetry unit. His echocardiogram showed ejection fraction 60% to 65% with diastolic dysfunction, mild mitral regurgitation and mild tricuspid regurgitation. CT angiogram of the chest was negative for pulmonary embolism. The patient has been cleared by Cardiology for discharge. FINAL DIAGNOSES: 1. Syncope secondary to hypotension. 2. Orthostatic hypotension, improved. 3. Acute kidney injury with creatinine of 2.1 on admission. The creatinine improved to 1.0. 4. Hyponatremia. 5. Coronary artery disease, status post recent CABG. 6. History of coronary stents. 7. Diabetes mellitus type 2. 8. Hypertension. 9. History of prostate cancer. The patient understands the above plan of care. Job ID: [id number]
--- NOTE | 2019-11-14 10:04 | EKG ---
Test Reason : Blood Pressure : / mmHG Vent. Rate : 073 BPM Atrial Rate : 073 BPM P-R Int : 166 ms QRS Dur : 098 ms QT Int : 416 ms P-R-T Axes : 065 016 064 degrees QTc Int : 458 ms Poor data quality, interpretation may be adversely affected Sinus rhythm with Premature atrial complexes Nonspecific ST and T wave abnormality Abnormal ECG When compared with ECG of 31-OCT-2019 06:07, Premature atrial complexes are now Present Confirmed by HAFSA PARISI (2) on 11/14/2019 10:04:14 AM Referred By: HUY Confirmed By:HAFSA PARISI
--- NOTE | 2019-11-14 10:12 | EKG ---
Test Reason : Blood Pressure : / mmHG Vent. Rate : 069 BPM Atrial Rate : 069 BPM P-R Int : 166 ms QRS Dur : 100 ms QT Int : 404 ms P-R-T Axes : 063 026 067 degrees QTc Int : 432 ms Sinus rhythm with Premature supraventricular complexes Nonspecific T wave abnormality Abnormal ECG When compared with ECG of 09-NOV-2019 17:38, (Unconfirmed) No significant change was found Confirmed by HAFSA PARISI (2) on 11/14/2019 10:12:01 AM Referred By: ISAK Confirmed By:HAFSA PARISI
== END 2019-11-11 13:20 | disposition home or self-care (01) ==
LOC: ERS 11:14 → 2NO 15:05
PROVIDERS: ADMIT Internal Medicine; ATTEND Internal Medicine
DX: I95.1 Orthostatic hypotension (principal); I10 Essential (primary) hypertension; I25.10 Atherosclerotic heart disease of native coronary artery without angina pectoris; E11.9 Type 2 diabetes mellitus without complications; E87.1 Hypo-osmolality and hyponatremia; N17.9 Acute kidney failure, unspecified; E66.9 Obesity, unspecified; Z68.36 Body mass index [BMI] 36.0-36.9, adult; Z79.82 Long term (current) use of aspirin; Z79.84 Long term (current) use of oral hypoglycemic drugs; Z79.899 Other long term (current) drug therapy; Z85.46 Personal history of malignant neoplasm of prostate; Z95.1 Presence of aortocoronary bypass graft; Z95.5 Presence of coronary angioplasty implant and graft
CPT/HCPCS: 36415; 36416; 36556; 71045; 71275; 80048; 80053; 80307; 81001; 82140; 82550; 82553; 83605; 83690; 83735; 83880; 84443; 84484; 85025; 85379; 87040; 93005; 93010; 93306; 93798; 96361; 96374; G0378; J1100; J1265; Q9967

== ENCOUNTER 2020-01-03 13:58 | Emergency (ER) | payer BC, MEDICARE | END 2020-01-03 14:37 | disposition left against medical advice (07) | LOC: ERS 13:58 | DX: Z53.21 Procedure and treatment not carried out due to patient leaving prior to being seen by health care provider (principal) ==

== ENCOUNTER 2021-12-10 13:12 | Emergency (ER) | payer MEDICARE ==
[2021-12-10 13:51] LABS: Mean Corpuscular HGB CONC 33.2 g/dL (32.0-36.0); Mean Corpuscular Volume 93.3 fL (78.0-98.0); Mean Platelet Volume 7.6 fL (7.4-10.4); Platelet Count 239 thou/uL (130-400); RBC Distribution Width 12.1 % (11.5-14.5); Red Blood Cell (RBC) Count 5.16 mill/uL (4.70-6.10)
[2021-12-10 14:08] LABS: Band 1 % (5-11); Eosinophils 7 % (0-10); Lymphocytes 19 % (21-51); MDiff Complete? YES; Monocytes 14 % (0-10); Neutrophil 44 % (42-75); Platelet Morphology Comment Appears Adequate; Polychromasia SLIGHT = 2-3 cells (100X) (0-2/hpf); Reactive Lymphocytes 15 % (0-10)
[2021-12-10 14:09] LABS: ALT (SGPT) 27 U/L (8-55); AST (SGOT) 23 U/L (5-34); Albumin 4.3 g/dL (3.4-4.8); Alkaline Phosphatase 118 U/L (40-110); Anion Gap 13 mmol/L (10-20); BUN (Urea Nitrogen) 9 mg/dL (8.4-25.7); Bilirubin, Total 1.3 mg/dL (0.2-1.2); Calc. Creatinine Clearance 0 mL/min (70-130); Calcium 9.2 mg/dL (7.8-10.44); Carbon Dioxide 25 mmol/L (23-31); Chloride 106 mmol/L (98-107); Estimated GFR 76; Globulin 2.7 g/dL (2.4-3.5); Glucose 109 mg/dL (80-115); Lipase 31 U/L (8-78); Potassium 4.3 mmol/L (3.5-5.1); Sodium 140 mmol/L (136-145)
[2021-12-10] MEDS ORDERED: Nitroglycerin 2% Ointment 1 INCH/1 GM Packet ONE (17:06)
[2021-12-10] MEDS ORDERED: Aspirin Chewable 81 MG TAB ONE (17:06)
== END 2021-12-10 17:38 | disposition home or self-care (01) ==
LOC: ERS 13:12
DX: I10 Essential (primary) hypertension (principal); R00.1 Bradycardia, unspecified; E78.5 Hyperlipidemia, unspecified; I25.10 Atherosclerotic heart disease of native coronary artery without angina pectoris
CPT/HCPCS: 36415; 71045; 80053; 83690; 84484; 85025; 93005; 94760

== ENCOUNTER 2022-12-21 18:41 | Inpatient (IN) | payer BC, MEDICARE, OTHER ==
[2022-12-21] MEDS ORDERED: Nitroglycerin 2% Ointment 1 INCH/1 GM Packet ONE (19:17)
[2022-12-21 19:24] LABS: #Basophils 0.1 thou/uL (0.0-0.2); #Eosinphils 0.2 thou/uL (0.0-0.7); #Monocytes 0.7 thou/uL (0.11-0.59); #Neutrophils 3.2 thou/uL (1.40-6.50); %Basophils 0.8 % (0.0-1.0); %Eosinophils 3.6 % (0.0-10.0); %Monocytes 11.4 % (0.0-10.0); %Neutrophils 52.9 % (42.0-75.0); Hematocrit 46.5 % (42.0-52.0); Hemoglobin 15.9 g/dL (14.0-18.0); Mean Corpuscular HGB CONC 34.2 g/dL (32.0-36.0); Mean Corpuscular Hemoglobin 30.7 pg (27.0-31.0); Mean Corpuscular Volume 89.8 fl (78.0-98.0); Mean Platelet Volume 10.1 fL (7.4-10.4); Platelet Count 293 10x3/uL (130-400); RBC Distribution Width 13.4 % (11.5-14.5); Red Blood Cell (RBC) Count 5.18 mill/uL (4.70-6.10)
[2022-12-21 19:53] LABS: ALT (SGPT) 22 U/L (8-55); AST (SGOT) 21 U/L (5-34); Albumin 4.6 g/dL (3.4-4.8); Alkaline Phosphatase 109 U/L (40-110); Anion Gap 12 mmol/L (10-20); BUN (Urea Nitrogen) 12 mg/dL (8.4-25.7); Bilirubin, Total 0.8 mg/dL (0.2-1.2); Calc. Creatinine Clearance 0 mL/min (70-130); Calcium 9.7 mg/dL (7.8-10.44); Carbon Dioxide 26 mmol/L (23-31); Chloride 107 mmol/L (98-107); Estimated GFR 62; Globulin 2.9 g/dL (2.4-3.5); Glucose 105 mg/dL (83-110); Potassium 3.8 mmol/L (3.5-5.1); Protein, Total 7.5 g/dL (5.8-8.1); Sodium 141 mmol/L (136-145)
[2022-12-21 19:58] LABS: Troponin I Less than 0.010 ng/mL (< 0.028)
[2022-12-21] MEDS ORDERED: Aspirin Chewable 81 MG TAB ONE (20:32)
[2022-12-21] MEDS ORDERED: Nitroglycerin 0.4 MG TAB 1 EACH ONE (20:32)
[2022-12-21 23:28] LABS: Troponin I 0.012 ng/mL (< 0.028)
[2022-12-21] MEDS ORDERED: Ondansetron ODT 4 MG TAB PO PRN (23:32)
[2022-12-21] MEDS ORDERED: Nitroglycerin 0.4 MG TAB (25 Tab Bottle) SL PRN (23:43)
[2022-12-21] MEDS ORDERED: NIFEdipine XL 30 MG TAB PO SCH (23:45)
[2022-12-22 01:59] LABS: Troponin I 0.011 ng/mL (< 0.028)
[2022-12-22] MEDS: Acetaminophen 325 MG TAB PO PRN ×2 (02:30→19:52)
[2022-12-22 04:20] LABS: #Eosinphils 0.2 thou/uL (0.0-0.7); #Monocytes 0.6 thou/uL (0.11-0.59); #Neutrophils 3.2 thou/uL (1.40-6.50); %Basophils 0.7 % (0.0-1.0); %Eosinophils 3.7 % (0.0-10.0); %Lymphocytes 26.5 % (21.0-51.0); %Monocytes 11.4 % (0.0-10.0); %Neutrophils 57.5 % (42.0-75.0); Hematocrit 42.5 % (42.0-52.0); Hemoglobin 14.6 g/dL (14.0-18.0); Mean Corpuscular HGB CONC 34.4 g/dL (32.0-36.0); Mean Corpuscular Hemoglobin 31.3 pg (27.0-31.0); Mean Corpuscular Volume 91.2 fl (78.0-98.0); Mean Platelet Volume 9.8 fL (7.4-10.4); Platelet Count 252 10x3/uL (130-400); RBC Distribution Width 13.4 % (11.5-14.5); Red Blood Cell (RBC) Count 4.66 mill/uL (4.70-6.10); White Blood Cell (WBC) Count 5.6 10x3/uL (4.8-10.8)
[2022-12-22 04:31] LABS: Hemoglobin A1c 5.6 % (4.0-6.0)
[2022-12-22 04:49] LABS: Anion Gap 13 mmol/L (10-20); BUN (Urea Nitrogen) 10 mg/dL (8.4-25.7); Calc. Creatinine Clearance 107 mL/min (70-130); Calcium 9.1 mg/dL (7.8-10.44); Carbon Dioxide 23 mmol/L (23-31); Cardiac Risk 2.4 (Less than 4.5); Chloride 108 mmol/L (98-107); Cholesterol 128 mg/dl (< 200 Desired); Estimated GFR 86; Glucose 101 mg/dL (83-110); HDL Cholesterol 53 mg/dL (>60 Neg Risk); LDL Cholesterol, Calculated 59 mg/dL; Potassium 3.7 mmol/L (3.5-5.1); Sodium 140 mmol/L (136-145); Triglycerides 79 mg/dL (Less than 150)
[2022-12-22] MEDS ORDERED: Nitroglycerin 2% Ointment 1 INCH/1 GM Packet TOP SCH (09:00)
[2022-12-22] MEDS ORDERED: cloNIDine 0.1 MG TAB PO SCH (09:00)
[2022-12-22] MEDS ORDERED: NIFEdipine XL 60 MG TAB PO SCH (09:00)
[2022-12-22] MEDS ORDERED: NIFEdipine XL 30 MG TAB PO SCH ×2 (09:00→17:30)
[2022-12-22] MEDS: Atorvastatin Calcium 40 MG TAB PO SCH (11:06)
[2022-12-22] MEDS: Losartan 25 MG TAB PO SCH (11:06)
[2022-12-22] MEDS: Aspirin 81 mg Enteric Coated Tablet PO SCH (11:07)
[2022-12-22] MEDS: hydrALAZINE 20 MG/ML VIAL SLOW IVP PRN ×2 (16:13→19:54)
[2022-12-22] MEDS ORDERED: Docusate 100 MG CAP PO PRN (17:23)
[2022-12-22] MEDS ORDERED: Hydrochlorothiazide 25 MG TAB PO SCH (20:30)
[2022-12-22] MEDS ORDERED: Simethicone Chewable 80 MG TAB PO PRN (20:33)
[2022-12-23 03:53] LABS: #Basophils 0.1 thou/uL (0.0-0.2); #Eosinphils 0.1 thou/uL (0.0-0.7); #Monocytes 0.7 thou/uL (0.11-0.59); #Neutrophils 4.5 thou/uL (1.40-6.50); %Basophils 0.8 % (0.0-1.0); %Lymphocytes 18.5 % (21.0-51.0); %Monocytes 10.8 % (0.0-10.0); %Neutrophils 67.6 % (42.0-75.0); Hematocrit 48.8 % (42.0-52.0); Hemoglobin 16.8 g/dL (14.0-18.0); Mean Corpuscular HGB CONC 34.4 g/dL (32.0-36.0); Mean Corpuscular Hemoglobin 30.4 pg (27.0-31.0); Mean Platelet Volume 9.4 fL (7.4-10.4); Platelet Count 292 10x3/uL (130-400); RBC Distribution Width 13.2 % (11.5-14.5); Red Blood Cell (RBC) Count 5.53 mill/uL (4.70-6.10); White Blood Cell (WBC) Count 6.6 10x3/uL (4.8-10.8)
[2022-12-23 04:15] LABS: Anion Gap 15 mmol/L (10-20); BUN (Urea Nitrogen) 9 mg/dL (8.4-25.7); Calc. Creatinine Clearance 113 mL/min (70-130); Calcium 10.1 mg/dL (7.8-10.44); Carbon Dioxide 21 mmol/L (23-31); Chloride 107 mmol/L (98-107); Estimated GFR 91; Glucose 106 mg/dL (83-110); Potassium 3.5 mmol/L (3.5-5.1); Sodium 139 mmol/L (136-145)
[2022-12-23 04:33] LABS: Mean Corpuscular Volume 88.2 fl (78.0-98.0)
[2022-12-23 05:24] VITALS: BMI 34.4
[2022-12-23] MEDS: Losartan 25 MG TAB PO SCH (07:58)
[2022-12-23] MEDS: Aspirin 81 mg Enteric Coated Tablet PO SCH (07:59)
[2022-12-23] MEDS: Atorvastatin Calcium 40 MG TAB PO SCH (07:59)
[2022-12-23] MEDS ORDERED: Hydrochlorothiazide 25 MG TAB PO SCH (09:00)
[2022-12-23] MEDS ORDERED: NIFEdipine XL 30 MG TAB PO SCH ×3 (09:00)
[2022-12-23] MEDS: hydrALAZINE 20 MG/ML VIAL SLOW IVP PRN (09:38)
[2022-12-23] MEDS: Acetaminophen 325 MG TAB PO PRN (11:05)
[2022-12-23 15:03] VITALS: BP 144/84; TEMP 98.4
== END 2022-12-23 16:43 | disposition home or self-care (01) | DRG 305 ==
LOC: ERS 18:41 → INTOOBSV 22:23 → 2NO 22:23 → OBSVTOIN 12-23 11:15
PROVIDERS: ADMIT Student in an Organized Health Care Education/Training Program; ATTEND Student in an Organized Health Care Education/Training Program
DX: I16.0 Hypertensive urgency (principal); I16.1 Hypertensive emergency; E78.5 Hyperlipidemia, unspecified; R07.89 Other chest pain; F10.90 Alcohol use, unspecified, uncomplicated; R73.03 Prediabetes; Z90.79 Acquired absence of other genital organ(s); Z95.5 Presence of coronary angioplasty implant and graft; Z85.46 Personal history of malignant neoplasm of prostate; Z87.891 Personal history of nicotine dependence; I10 Essential (primary) hypertension; Z79.82 Long term (current) use of aspirin; Z79.899 Other long term (current) drug therapy; Z95.1 Presence of aortocoronary bypass graft; Z90.49 Acquired absence of other specified parts of digestive tract; Z82.49 Family history of ischemic heart disease and other diseases of the circulatory system
CPT/HCPCS: 36415; 70450; 71045; 80048; 80053; 80061; 83036; 83880; 84443; 84484; 85025; 93005; 96374; 96376; G0378; J0360

== ENCOUNTER 2022-12-25 09:58 | Inpatient (IN) | payer MEDICARE ==
[2022-12-25 11:07] LABS: #Eosinphils 0.1 thou/uL (0.0-0.7); #Neutrophils 3.9 thou/uL (1.40-6.50); %Basophils 0.6 % (0.0-1.0); %Lymphocytes 25.1 % (21.0-51.0); %Monocytes 14.9 % (0.0-10.0); %Neutrophils 58.1 % (42.0-75.0); Hematocrit 54.3 % (42.0-52.0); Hemoglobin 18.5 g/dL (14.0-18.0); Mean Corpuscular HGB CONC 34.1 g/dL (32.0-36.0); Mean Corpuscular Hemoglobin 30.7 pg (27.0-31.0); Mean Platelet Volume 9.5 fL (7.4-10.4); Platelet Count 331 10x3/uL (130-400); RBC Distribution Width 13.4 % (11.5-14.5); Red Blood Cell (RBC) Count 6.03 mill/uL (4.70-6.10); White Blood Cell (WBC) Count 6.8 10x3/uL (4.8-10.8)
[2022-12-25 11:33] LABS: ALT (SGPT) 24 U/L (8-55); AST (SGOT) 25 U/L (5-34); Albumin 4.5 g/dL (3.4-4.8); Alkaline Phosphatase 96 U/L (40-110); Anion Gap 19 mmol/L (10-20); BUN (Urea Nitrogen) 28 mg/dL (8.4-25.7); Bilirubin, Total 1.8 mg/dL (0.2-1.2); Calc. Creatinine Clearance 0 mL/min (70-130); Calcium 9.8 mg/dL (7.8-10.44); Carbon Dioxide 21 mmol/L (23-31); Chloride 103 mmol/L (98-107); Estimated GFR 27; Globulin 2.8 g/dL (2.4-3.5); Glucose 134 mg/dL (83-110); Potassium 3.8 mmol/L (3.5-5.1); Protein, Total 7.3 g/dL (5.8-8.1); Sodium 139 mmol/L (136-145)
[2022-12-25 11:34] LABS: Troponin I 0.045 ng/mL (< 0.028)
[2022-12-25] MEDS ORDERED: Aspirin Chewable 81 MG TAB ONE (12:40)
[2022-12-25 13:11] LABS: INR-International Normal Ratio 1.1; Prothrombin Time 14.4 sec (12.0-14.7)
[2022-12-25 13:12] LABS: PTT 30.9 sec (22.9-36.1)
[2022-12-25 13:21] LABS: Bacteria/HPF 4+ HPF (None Seen); Bilirubin Negative (Negative); Blood, Urine Negative (Negative); CAUTI Indications for Culture Alt mental st,lethar; Clarity Turbid (Clear); Glucose, Urine (Dipstick) Normal (Negative); Ketone, Urine Trace mg/dL (Negative); Leukocyte 25 Leu/uL (Negative); Nitrite Negative (Negative); Protein, Urine (Dipstick) Negative (Neg-Trace); RBC/HPF 0-3 HPF (0-3); Specific Gravity, Urine 1.012 (1.002-1.036); Squamous Epithelial 0-3 HPF (0-3); Urobilinogen Normal mg/dL (Less than 2); WBC/HPF 0-3 HPF (0-3); pH, Urine 5.5 (5.0-9.0)
[2022-12-25 13:22] LABS: Urine Culture Reflex No No
[2022-12-25] MEDS ORDERED: Heparin 25,000 units/D5W 500 ML ONE (13:28)
[2022-12-25] MEDS ORDERED: Heparin 10,000 UNITS/ 10 ML VIAL ONE (13:28)
[2022-12-25 15:13] LABS: Troponin I 0.033 ng/mL (< 0.028)
[2022-12-25 15:45] VITALS: BMI 33.3
[2022-12-25] MEDS ORDERED: Bisacodyl 5 MG TAB PO PRN (16:03)
[2022-12-25] MEDS ORDERED: Ondansetron ODT 4 MG TAB PO PRN (16:03)
[2022-12-25] MEDS: Lactated Ringer's 1,000 ML IV SCH ×2 (16:50→23:41)
[2022-12-25 17:47] LABS: Troponin I 0.037 ng/mL (< 0.028)
[2022-12-25] MEDS: Atorvastatin Calcium 40 MG TAB PO SCH (20:32)
[2022-12-25] MEDS: Acetaminophen 325 MG TAB PO PRN (20:32)
[2022-12-25] MEDS: Heparin 5,000 UNITS/ML VIAL SC SCH (20:33)
[2022-12-25] MEDS ORDERED: Famotidine 20 MG TAB PO SCH (21:00)
[2022-12-26] MEDS ORDERED: diphenhydrAMINE 50 MG/ML VIAL IVP SCH (00:30)
[2022-12-26] MEDS ORDERED: Metoclopramide HCl 10 MG/2 ML VIAL IVP SCH (00:30)
[2022-12-26 04:47] LABS: #Basophils 0.1 thou/uL (0.0-0.2); #Eosinphils 0.1 thou/uL (0.0-0.7); #Monocytes 0.7 thou/uL (0.11-0.59); #Neutrophils 3.3 thou/uL (1.40-6.50); %Basophils 0.9 % (0.0-1.0); %Eosinophils 2.4 % (0.0-10.0); %Monocytes 12.7 % (0.0-10.0); %Neutrophils 56.8 % (42.0-75.0); Hematocrit 49.1 % (42.0-52.0); Hemoglobin 16.5 g/dL (14.0-18.0); Mean Corpuscular HGB CONC 33.6 g/dL (32.0-36.0); Mean Corpuscular Hemoglobin 30.5 pg (27.0-31.0); Mean Corpuscular Volume 90.8 fl (78.0-98.0); Mean Platelet Volume 9.4 fL (7.4-10.4); Platelet Count 277 10x3/uL (130-400); RBC Distribution Width 13.3 % (11.5-14.5); Red Blood Cell (RBC) Count 5.41 mill/uL (4.70-6.10); White Blood Cell (WBC) Count 5.8 10x3/uL (4.8-10.8)
[2022-12-26 05:12] LABS: ALT (SGPT) 22 U/L (8-55); AST (SGOT) 26 U/L (5-34); Albumin 3.6 g/dL (3.4-4.8); Alkaline Phosphatase 84 U/L (40-110); Anion Gap 13 mmol/L (10-20); BUN (Urea Nitrogen) 18 mg/dL (8.4-25.7); Bilirubin, Total 1.3 mg/dL (0.2-1.2); Calc. Creatinine Clearance 84 mL/min (70-130); Calcium 8.6 mg/dL (7.8-10.44); Carbon Dioxide 22 mmol/L (23-31); Chloride 106 mmol/L (98-107); Estimated GFR 69; Globulin 2.7 g/dL (2.4-3.5); Glucose 103 mg/dL (83-110); Potassium 3.8 mmol/L (3.5-5.1); Protein, Total 6.3 g/dL (5.8-8.1); Sodium 137 mmol/L (136-145)
[2022-12-26] MEDS: Lactated Ringer's 1,000 ML IV SCH ×3 (06:00→14:32)
[2022-12-26] MEDS: Acetaminophen 325 MG TAB PO PRN (06:26)
[2022-12-26] MEDS: NIFEdipine XL 60 MG TAB PO SCH (06:31)
[2022-12-26] MEDS: Aspirin 81 mg Enteric Coated Tablet PO SCH (08:48)
[2022-12-26] MEDS: Losartan 25 MG TAB PO SCH (08:48)
[2022-12-26] MEDS: Heparin 5,000 UNITS/ML VIAL SC SCH ×3 (08:48→21:16)
[2022-12-26] MEDS ORDERED: Losartan 25 MG TAB PO SCH (09:00)
[2022-12-26] MEDS: Atorvastatin Calcium 40 MG TAB PO SCH (21:16)
[2022-12-26] MEDS: Famotidine 20 MG TAB PO SCH (21:16)
[2022-12-27 04:48] LABS: #Basophils 0.1 thou/uL (0.0-0.2); #Eosinphils 0.2 thou/uL (0.0-0.7); #Monocytes 0.8 thou/uL (0.11-0.59); #Neutrophils 2.8 thou/uL (1.40-6.50); %Eosinophils 4.2 % (0.0-10.0); %Lymphocytes 25.7 % (21.0-51.0); %Monocytes 14.9 % (0.0-10.0); Hemoglobin 16.3 g/dL (14.0-18.0); Mean Corpuscular HGB CONC 34.7 g/dL (32.0-36.0); Mean Corpuscular Hemoglobin 30.7 pg (27.0-31.0); Mean Corpuscular Volume 88.5 fl (78.0-98.0); Mean Platelet Volume 9.3 fL (7.4-10.4); Platelet Count 282 10x3/uL (130-400); RBC Distribution Width 13.1 % (11.5-14.5); Red Blood Cell (RBC) Count 5.31 mill/uL (4.70-6.10); White Blood Cell (WBC) Count 5.3 10x3/uL (4.8-10.8)
[2022-12-27 05:16] LABS: ALT (SGPT) 22 U/L (8-55); AST (SGOT) 22 U/L (5-34); Albumin 3.8 g/dL (3.4-4.8); Alkaline Phosphatase 88 U/L (40-110); Anion Gap 12 mmol/L (10-20); BUN (Urea Nitrogen) 11 mg/dL (8.4-25.7); Bilirubin, Total 1.2 mg/dL (0.2-1.2); Calc. Creatinine Clearance 101 mL/min (70-130); Calcium 9.1 mg/dL (7.8-10.44); Carbon Dioxide 21 mmol/L (23-31); Chloride 107 mmol/L (98-107); Estimated GFR 82; Globulin 2.5 g/dL (2.4-3.5); Glucose 104 mg/dL (83-110); Potassium 3.4 mmol/L (3.5-5.1); Protein, Total 6.3 g/dL (5.8-8.1); Sodium 137 mmol/L (136-145)
[2022-12-27] MEDS: Losartan 25 MG TAB PO SCH (08:33)
[2022-12-27] MEDS: Aspirin 81 mg Enteric Coated Tablet PO SCH (08:33)
[2022-12-27] MEDS: NIFEdipine XL 60 MG TAB PO SCH (08:33)
[2022-12-27] MEDS: Heparin 5,000 UNITS/ML VIAL SC SCH ×3 (08:33→20:42)
[2022-12-27] MEDS ORDERED: NIFEdipine XL 60 MG TAB PO SCH (08:43)
[2022-12-27] MEDS ORDERED: NIFEdipine XL 30 MG TAB PO SCH (08:45)
[2022-12-27] MEDS ORDERED: Hydrochlorothiazide 25 MG TAB PO SCH (09:00)
[2022-12-27] MEDS: Carvedilol 6.25 MG TAB PO SCH (17:41)
[2022-12-27] MEDS: Atorvastatin Calcium 40 MG TAB PO SCH (20:42)
[2022-12-27] MEDS: Famotidine 20 MG TAB PO SCH (20:42)
[2022-12-27] MEDS ORDERED: hydrALAZINE 20 MG/ML VIAL SLOW IVP SCH (21:00)
[2022-12-27] MEDS ORDERED: hydrALAZINE 20 MG/ML VIAL SLOW IVP PRN (21:00)
[2022-12-27] MEDS ORDERED: Carvedilol 6.25 MG TAB PO SCH (23:01)
[2022-12-27] MEDS: Acetaminophen 325 MG TAB PO PRN (23:27)
[2022-12-27 23:32] LABS: Troponin I 0.022 ng/mL (< 0.028)
[2022-12-28 05:42] LABS: #Basophils 0.1 thou/uL (0.0-0.2); #Eosinphils 0.1 thou/uL (0.0-0.7); #Monocytes 0.8 thou/uL (0.11-0.59); #Neutrophils 2.8 thou/uL (1.40-6.50); %Eosinophils 2.8 % (0.0-10.0); %Lymphocytes 25.7 % (21.0-51.0); %Monocytes 15.4 % (0.0-10.0); %Neutrophils 54.9 % (42.0-75.0); Hematocrit 47.8 % (42.0-52.0); Hemoglobin 16.6 g/dL (14.0-18.0); Mean Corpuscular HGB CONC 34.7 g/dL (32.0-36.0); Mean Corpuscular Volume 89.2 fl (78.0-98.0); Mean Platelet Volume 9.4 fL (7.4-10.4); Platelet Count 317 10x3/uL (130-400); Red Blood Cell (RBC) Count 5.36 mill/uL (4.70-6.10)
[2022-12-28 06:07] LABS: ALT (SGPT) 20 U/L (8-55); AST (SGOT) 19 U/L (5-34); Albumin 3.8 g/dL (3.4-4.8); Alkaline Phosphatase 86 U/L (40-110); Anion Gap 13 mmol/L (10-20); BUN (Urea Nitrogen) 9 mg/dL (8.4-25.7); Bilirubin, Total 1.5 mg/dL (0.2-1.2); Calc. Creatinine Clearance 101 mL/min (70-130); Calcium 9.3 mg/dL (7.8-10.44); Carbon Dioxide 23 mmol/L (23-31); Chloride 105 mmol/L (98-107); Estimated GFR 86; Globulin 2.6 g/dL (2.4-3.5); Glucose 109 mg/dL (83-110); Potassium 3.6 mmol/L (3.5-5.1); Protein, Total 6.4 g/dL (5.8-8.1); Sodium 137 mmol/L (136-145)
[2022-12-28] MEDS ORDERED: Carvedilol 6.25 MG TAB PO SCH ×2 (08:00→09:30)
[2022-12-28] MEDS: Carvedilol 6.25 MG TAB PO SCH ×2 (08:26→16:43)
[2022-12-28] MEDS: Heparin 5,000 UNITS/ML VIAL SC SCH ×3 (08:27→20:58)
[2022-12-28] MEDS: Aspirin 81 mg Enteric Coated Tablet PO SCH (08:27)
[2022-12-28] MEDS: Losartan 25 MG TAB PO SCH (08:27)
[2022-12-28] MEDS ORDERED: NIFEdipine XL 90 MG TAB PO SCH (09:00)
[2022-12-28] MEDS ORDERED: NIFEdipine XL 30 MG TAB PO SCH (10:00)
[2022-12-28] MEDS ORDERED: cloNIDine 0.1 MG TAB PO PRN (12:57)
[2022-12-28] MEDS ORDERED: hydrALAZINE 10 MG TAB PO SCH (13:00)
[2022-12-28] MEDS: Acetaminophen 325 MG TAB PO PRN ×2 (14:22→20:58)
[2022-12-28] MEDS: Atorvastatin Calcium 40 MG TAB PO SCH (20:58)
[2022-12-28] MEDS: Famotidine 20 MG TAB PO SCH (20:58)
[2022-12-28] MEDS ORDERED: hydrALAZINE 25 MG TAB PO SCH (21:00)
[2022-12-29 06:12] LABS: #Basophils 0.1 thou/uL (0.0-0.2); #Eosinphils 0.2 thou/uL (0.0-0.7); #Monocytes 0.7 thou/uL (0.11-0.59); #Neutrophils 2.9 thou/uL (1.40-6.50); %Eosinophils 3.6 % (0.0-10.0); %Lymphocytes 25.1 % (21.0-51.0); %Monocytes 12.9 % (0.0-10.0); %Neutrophils 57.2 % (42.0-75.0); Hematocrit 47.5 % (42.0-52.0); Hemoglobin 16.5 g/dL (14.0-18.0); Mean Corpuscular HGB CONC 34.7 g/dL (32.0-36.0); Mean Corpuscular Hemoglobin 30.9 pg (27.0-31.0); Mean Platelet Volume 9.4 fL (7.4-10.4); Platelet Count 327 10x3/uL (130-400); RBC Distribution Width 13.1 % (11.5-14.5); Red Blood Cell (RBC) Count 5.34 mill/uL (4.70-6.10)
[2022-12-29 06:33] LABS: ALT (SGPT) 25 U/L (8-55); AST (SGOT) 21 U/L (5-34); Alkaline Phosphatase 93 U/L (40-110); Anion Gap 13 mmol/L (10-20); BUN (Urea Nitrogen) 13 mg/dL (8.4-25.7); Bilirubin, Total 1.3 mg/dL (0.2-1.2); Calc. Creatinine Clearance 93 mL/min (70-130); Calcium 9.7 mg/dL (7.8-10.44); Carbon Dioxide 22 mmol/L (23-31); Chloride 106 mmol/L (98-107); Estimated GFR 79; Globulin 2.7 g/dL (2.4-3.5); Glucose 104 mg/dL (83-110); Potassium 3.7 mmol/L (3.5-5.1); Protein, Total 6.7 g/dL (5.8-8.1); Sodium 137 mmol/L (136-145)
[2022-12-29] MEDS: Heparin 5,000 UNITS/ML VIAL SC SCH (08:11)
[2022-12-29] MEDS: Aspirin 81 mg Enteric Coated Tablet PO SCH (08:11)
[2022-12-29] MEDS: Carvedilol 6.25 MG TAB PO SCH (08:11)
[2022-12-29] MEDS: Losartan 25 MG TAB PO SCH (08:12)
[2022-12-29] MEDS ORDERED: NIFEdipine XL 60 MG TAB PO SCH (09:00)
[2022-12-29 11:27] VITALS: BP 160/92; TEMP 97.9
== END 2022-12-29 13:55 | disposition home or self-care (01) | DRG 640 ==
LOC: ERS 09:58 → ERHOLD 13:27 → INTOOBSV 13:27 → 2NO 15:11 → INTOOBSV 16:07 → OBSVTOIN 16:07
PROVIDERS: ADMIT Internal Medicine; ATTEND Internal Medicine
DX: E86.0 Dehydration (principal); I21.A1 Myocardial infarction type 2; N17.9 Acute kidney failure, unspecified; I25.10 Atherosclerotic heart disease of native coronary artery without angina pectoris; E78.5 Hyperlipidemia, unspecified; R73.03 Prediabetes; E86.1 Hypovolemia; I16.0 Hypertensive urgency; I95.2 Hypotension due to drugs; T50.905A Adverse effect of unspecified drugs, medicaments and biological substances, initial encounter; Z95.5 Presence of coronary angioplasty implant and graft; Z95.1 Presence of aortocoronary bypass graft; Z85.46 Personal history of malignant neoplasm of prostate; Z98.890 Other specified postprocedural states; Z87.891 Personal history of nicotine dependence; Z79.82 Long term (current) use of aspirin; Z79.899 Other long term (current) drug therapy; Z90.49 Acquired absence of other specified parts of digestive tract
CPT/HCPCS: 36415; 36416; 71045; 80053; 81001; 84484; 85025; 85610; 85730; 93005; 93010; 93306; 96361; 96365; J0360; J1200; J1644; J2765; J7120